=== PATIENT | male | born 1985 | race American Indian/Alaskan Native ===

== ENCOUNTER 2018-03-13 09:23 | Emergency (ER) | payer MEDICAID ==
[~2018-03-13] VITALS: Ht 172.7 cm; Wt 73.4 kg
[~2018-03-13 09:23] MED LIST: NO HOME MEDS
[2018-03-13] MEDS ORDERED: OLANZapine 5mg rapidly disint. tablet PO ONE (09:50)
[2018-03-13 10:40] LABS: URINE AMPHETAMINE SCREEN NEGATIVE (Neg); URINE BARBITUATE SCREEN NEGATIVE (Neg); URINE BENZODIAZEPINES SCREEN NEGATIVE (Neg); URINE CANNABINOID SCREEN NEGATIVE (Neg); URINE COCAINE SCREEN NEGATIVE (Neg); URINE METHADONE SCREEN NEGATIVE (Neg); URINE OPIATE SCREEN NEGATIVE (Neg); URINE PHENCYCLIDINE SCREEN NEGATIVE (Neg)
[2018-03-13 10:47] LABS: BASOPHILS # (AUTO) 0.1 X10'3 (0-0.2); BASOPHILS % (AUTO) 0.9 % (0-1); EOSINOPHILS # (AUTO) 0.1 X10'3 (0-0.9); HEMATOCRIT 43.3 % (42.0-52.0); HEMOGLOBIN 14.4 g/dl (14.0-17.9); LYMPHOCYTES # (AUTO) 1.2 X10'3 (1.1-4.8); LYMPHOCYTES % (AUTO) 17.5 % (21-51); MEAN CORPUSCULAR HEMOGLOBIN 29.9 PG (27.0-31.0); MEAN CORPUSCULAR HGB CONC 33.4 % (33.0-36.5); MEAN CORPUSCULAR VOLUME 89.6 FL (78-98); MEAN PLATELET VOLUME 8.2 FL (7.4-10.4); MONOCYTES # (AUTO) 0.8 X10'3 (0-0.9); MONOCYTES % (AUTO) 11.3 % (2-12); NEUTROPHILS # (AUTO) 4.6 X10'3 (1.8-7.7); NEUTROPHILS % (AUTO) 68.3 % (42-75); PLATELET COUNT 247 X10'3 (140-440); RED BLOOD COUNT 4.83 X10'6 (4.70-6.10); WHITE BLOOD COUNT 6.8 X10'3 (4.5-11.0)
[2018-03-13 11:01] LABS: ALANINE AMINOTRANSFERASE 35 U/L (12-78); ALBUMIN/GLOBULIN RATIO 1.2 (1.1-1.5); ALKALINE PHOSPHATASE 83 IU/L (46-116); ANION GAP 9 (8-16); ASPARTATE AMINO TRANSFERASE 27 U/L (10-37); BILIRUBIN,TOTAL 0.6 MG/DL (0.1-1.0); BLOOD UREA NITROGEN 16 MG/DL (7-18); BUN/CREATININE RATIO 15.5 (5.4-32.0); CALCIUM 8.8 MG/DL (8.5-10.1); CHLORIDE 102 MMOL/L (99-107); CREATININE 1.03 MG/DL (0.60-1.10); GLUCOSE 95 MG/DL (70-104); POTASSIUM 3.7 MMOL/L (3.5-5.1); SODIUM 140 MMOL/L (135-145); TOTAL CARBON DIOXIDE 29.3 MMOL/L (24-32); TOTAL PROTEIN 7.4 G/DL (6.4-8.2); eGFR 85 ML/MIN
[2018-03-13 11:08] LABS: ETHANOL < 0.010 GM/DL (0.0-0.010)
[2018-03-13] MEDS ORDERED: QUET50TA PO (11:11)
[2018-03-13] MEDS ORDERED: PALI234D IM (11:11)
[2018-03-13] MEDS ORDERED: quetiapine 100mg tablet PO ONE (11:20)
[2018-03-13] MEDS ORDERED: LORazepam 1 MG tablet PO PRN (17:05)
[2018-03-13] MEDS ORDERED: QUEtiapine 25mg tablet PO SCH (21:00)
[2018-03-15 06:03] VITALS: BP 115/69
[2018-03-15] MEDS ORDERED: LORA1TAB PO (13:01)
[2018-03-22] MEDS ORDERED: paliperidone palmitate inj 234 MG/1.5 ML SYRINGE IM SCH (08:00)
== END 2018-03-15 09:23 | disposition home or self-care (01) ==
LOC: ER 09:23
DX: F29 Unspecified psychosis not due to a substance or known physiological condition (principal); R45.851 Suicidal ideations; F32.9 Major depressive disorder, single episode, unspecified; F20.9 Schizophrenia, unspecified; F41.9 Anxiety disorder, unspecified; F15.90 Other stimulant use, unspecified, uncomplicated; F11.90 Opioid use, unspecified, uncomplicated; F17.210 Nicotine dependence, cigarettes, uncomplicated; Z88.0 Allergy status to penicillin; Z88.1 Allergy status to other antibiotic agents; Z88.6 Allergy status to analgesic agent; Z56.0 Unemployment, unspecified
CPT/HCPCS: 36415; 80053; 80305; 80320; 85025; 99285

== ENCOUNTER 2018-08-30 15:22 | Emergency (ER) | payer MEDICAID, OTHER ==
[~2018-08-30] VITALS: Ht 167.6 cm; Wt 63.6 kg
[~2018-08-30 15:22] MED LIST changes: +ATI1T PO; -NO HOME MEDS; +VENL75CA61 PO
[2018-08-30 16:07] LABS: CLARITY,URINE CLOUDY (Clear); GLUCOSE, URINE NEGATIVE (Neg); KETONES,URINE TRACE mg/dl (Neg); LEUKOCYTE ESTERASE ,URINE NEGATIVE (Neg); NITRITES, URINE NEGATIVE (Neg); OCCULT BLOOD,URINE NEGATIVE (Neg); PH,URINE 5.5 (4.8-8.0); PROTEIN,URINE TRACE mg/dl (Neg); UROBILINOGEN,URINE 0.2 E.U/dL (0.2-1.0)
[2018-08-30 16:12] LABS: COLOR,URINE DARK YELLOW (Yellow); UA COLLECTION TYPE CLN CATCH MIDSTREAM
[2018-08-30 16:14] LABS: ALANINE AMINOTRANSFERASE 20 U/L (12-78); ALBUMIN 4.3 G/DL (3.4-5.0); ALBUMIN/GLOBULIN RATIO 1.3 (1.1-1.5); ALKALINE PHOSPHATASE 71 IU/L (46-116); ANION GAP 9 (8-16); ASPARTATE AMINO TRANSFERASE 17 U/L (10-37); BILIRUBIN,TOTAL 0.4 MG/DL (0.1-1.0); BLOOD UREA NITROGEN 13 MG/DL (7-18); BUN/CREATININE RATIO 14.1 (5.4-32.0); CHLORIDE 106 MMOL/L (99-107); CREATININE 0.92 MG/DL (0.60-1.10); GLUCOSE 78 MG/DL (70-104); POTASSIUM 3.8 MMOL/L (3.5-5.1); SODIUM 143 MMOL/L (135-145); TOTAL CARBON DIOXIDE 28.4 MMOL/L (24-32); TOTAL PROTEIN 7.5 G/DL (6.4-8.2); eGFR > 90 ML/MIN
[2018-08-30 16:21] LABS: BASOPHILS % (AUTO) 0.6 % (0-1); EOSINOPHILS # (AUTO) 0.1 X10'3 (0-0.9); HEMATOCRIT 43.6 % (42.0-52.0); HEMOGLOBIN 14.9 g/dl (14.0-17.9); LYMPHOCYTES # (AUTO) 2.1 X10'3 (1.1-4.8); LYMPHOCYTES % (AUTO) 36.3 % (21-51); MEAN CORPUSCULAR HEMOGLOBIN 30.9 PG (27.0-31.0); MEAN CORPUSCULAR HGB CONC 34.2 g/dL (33.0-36.5); MEAN CORPUSCULAR VOLUME 90.2 FL (78-98); MEAN PLATELET VOLUME 8.8 FL (7.4-10.4); MONOCYTES # (AUTO) 0.4 X10'3 (0-0.9); MONOCYTES % (AUTO) 6.6 % (2-12); NEUTROPHILS # (AUTO) 3.3 X10'3 (1.8-7.7); NEUTROPHILS % (AUTO) 55.5 % (42-75); PLATELET COUNT 229 X10'3 (140-440); RED BLOOD COUNT 4.84 X10'6 (4.70-6.10); RED CELL DISTRIBUTION WIDTH 12.4 % (11.5-14.5); WHITE BLOOD COUNT 5.9 X10'3 (4.5-11.0)
[2018-08-30 16:23] LABS: ETHANOL < 0.010 GM/DL (0.0-0.010)
[2018-08-30 16:39] LABS: URINE AMPHETAMINE SCREEN NEGATIVE (Neg); URINE BARBITUATE SCREEN NEGATIVE (Neg); URINE BENZODIAZEPINES SCREEN NEGATIVE (Neg); URINE CANNABINOID SCREEN NEGATIVE (Neg); URINE COCAINE SCREEN NEGATIVE (Neg); URINE METHADONE SCREEN NEGATIVE (Neg); URINE OPIATE SCREEN NEGATIVE (Neg); URINE PHENCYCLIDINE SCREEN NEGATIVE (Neg)
[2018-08-30 16:50] LABS: MUCUS STRANDS MANY /LPF (Neg)
[2018-08-30 16:51] LABS: AMORPHOUS URATES 4+; RBC,URINE NONE SEEN /HPF (0-2); SQUAMOUS EPITHELIAL CELL,UR FEW /LPF (FEW); WBC,URINE 0-4 /HPF (0-4)
[2018-08-30 16:52] LABS: BACTERIA,URINE NONE SEEN /HPF (Neg)
--- NOTE | 2018-08-30 19:11 | NUR ---
Patient is awake and ambulating around room. He is calm and cooperative. He seems to respond to internal stimuli prior to answering questions.
--- NOTE | 2018-08-30 21:00 | NUR ---
The patient was moved to bed 20 in the ER overflow. He was cooperative with nursing requests. He appears anxious and is restless. He stated that his sleep at home has been "pretty good" and when asked why he was here he stated that he did not know. He stated that he is a clinic at [facility] and "Nereyda" is prescribing his psychiatric medications but the patient has not been taking them. He lives with his mother in [place] and is unemployed. He has no source of income but denies any kind of financial or legal problems at this time. He did state his anxiety has been high. He denies psychotic symptoms and he does appear slightly distracted. He denies thoughts to harm himself or others. When asked if he felt depressed he stated, "Mirna. Life is hard at times" but was unable to relate how it was hard. He was alert, oriented, polite, minimal and guarded. His grooming is adequate. He was offered zyprexa but he refused to take it. He is only interested in taking ativan.
[2018-08-30] MEDS: OLANZapine 2.5MG tablet PO ONE ×2 (21:11→21:12)
--- NOTE | 2018-08-30 23:29 | NUR ---
The patient appears to be sleeping
--- NOTE | 2018-08-31 02:32 | NUR ---
RELIEVING PRIMARY RN FOR BREAK. PT ASLEEP, LYING ON HIS LEFT SIDE WITH BLANIKETS COVERING TO HIS SHOULDERS. RR 14 AND UNLABORED. SITTER AND RN WITHIN VIEW OF PT AAT.
--- NOTE | 2018-08-31 04:42 | NUR ---
The patient appears to be asleep at this time
--- NOTE | 2018-08-31 05:38 | NUR ---
Report to IGOR Mueller at [facility] who are considering the patient for their program.
--- NOTE | 2018-08-31 06:55 | NUR ---
Recieved pt in bed sleeping with normal respirations and in no distress. Awoke and ambulated to bathroom and returned to bed.
--- NOTE | 2018-08-31 10:36 | NUR ---
Pt calm and cooperative. Did not eat breakfast. Offered a pre packaged sandwich and still refused. Encouraged to drink juice and water. Awake and pacing near bed. Gave report to Armida River.
[2018-08-31] MEDS ORDERED: LORazepam 1 MG tablet PO PRN (13:10)
--- NOTE | 2018-08-31 13:45 | NUR ---
med clearance and ekg sent to resp pad
--- NOTE | 2018-08-31 13:58 | NUR ---
PT'S GRANDMOTHER IS AT BEDSIDE NOW.
[2018-08-31 15:13] VITALS: BP 105/58
== END 2018-08-31 15:19 ==
LOC: ER 15:22
DX: F29 Unspecified psychosis not due to a substance or known physiological condition (principal); F41.9 Anxiety disorder, unspecified; F20.9 Schizophrenia, unspecified; F17.200 Nicotine dependence, unspecified, uncomplicated; F15.90 Other stimulant use, unspecified, uncomplicated; F11.90 Opioid use, unspecified, uncomplicated; Z91.14 Patient's other noncompliance with medication regimen; Z56.0 Unemployment, unspecified; Z88.0 Allergy status to penicillin; Z88.1 Allergy status to other antibiotic agents; Z88.5 Allergy status to narcotic agent; Z88.8 Allergy status to other drugs, medicaments and biological substances; Z79.899 Other long term (current) drug therapy
CPT/HCPCS: 36415; 80053; 80305; 80320; 81001; 84443; 85025; 93005; 99285

== ENCOUNTER 2019-02-23 03:12 | Emergency (ER) | payer MEDICAID ==
[~2019-02-23] VITALS: Ht 172.7 cm; Wt 80.0 kg
[2019-02-23] MEDS ORDERED: magnesium 2GM in 50ml NS 50 ML IV ONE (03:30)
[2019-02-23] MEDS ORDERED: normal saline 1000ML IV soln IVB ONE ×4 (03:30→07:15)
[2019-02-23] MEDS ORDERED: LORazepam 2 mg/ml vial IV ONE ×3 (03:30→06:20)
[2019-02-23] MEDS ORDERED: diltiazem 5mg/ml 5ml inj. IV ONE ×2 (03:35→03:55)
[2019-02-23] MEDS ORDERED: acetaminophen 325mg tablet PO ONE (03:40)
[2019-02-23] MEDS ORDERED: OLAN20TA3 PO (03:43)
[2019-02-23] MEDS ORDERED: LORA2TAB96 PO (03:44)
[2019-02-23] MEDS ORDERED: SERT-153 PO (03:44)
[2019-02-23 03:45] LABS: BASOPHILS % (AUTO) 0.3 % (0-1); EOSINOPHILS % (AUTO) 0 % (0-6); HEMATOCRIT 48.1 % (42.0-52.0); HEMOGLOBIN 16.2 g/dl (14.0-17.9); LYMPHOCYTES # (AUTO) 1.1 X10'3 (1.1-4.8); LYMPHOCYTES % (AUTO) 6.6 % (21-51); MEAN CORPUSCULAR HEMOGLOBIN 30.2 PG (27.0-31.0); MEAN CORPUSCULAR HGB CONC 33.6 g/dL (33.0-36.5); MEAN CORPUSCULAR VOLUME 89.8 FL (78-98); MEAN PLATELET VOLUME 9.2 FL (7.4-10.4); MONOCYTES # (AUTO) 0.6 X10'3 (0-0.9); MONOCYTES % (AUTO) 3.7 % (2-12); NEUTROPHILS # (AUTO) 14.9 X10'3 (1.8-7.7); NEUTROPHILS % (AUTO) 89.4 % (42-75); PLATELET COUNT 269 X10'3 (140-440); RED BLOOD COUNT 5.36 X10'6 (4.70-6.10); RED CELL DISTRIBUTION WIDTH 13.4 % (11.5-14.5); WHITE BLOOD COUNT 16.7 X10'3 (4.5-11.0)
[2019-02-23 04:08] LABS: ALANINE AMINOTRANSFERASE 35 U/L (12-78); ALBUMIN 4.9 G/DL (3.4-5.0); ALBUMIN/GLOBULIN RATIO 1.2 (1.1-1.5); ALKALINE PHOSPHATASE 72 IU/L (46-116); ANION GAP 17 (8-16); ASPARTATE AMINO TRANSFERASE 23 U/L (10-37); BILIRUBIN,TOTAL 0.3 MG/DL (0.1-1.0); BLOOD UREA NITROGEN 9 MG/DL (7-18); BUN/CREATININE RATIO 4.9 (5.4-32.0); CALCIUM 9.1 MG/DL (8.5-10.1); CHLORIDE 105 MMOL/L (99-107); CREATININE 1.83 MG/DL (0.60-1.10); GLUCOSE 187 MG/DL (70-104); POTASSIUM 3.9 MMOL/L (3.5-5.1); SODIUM 143 MMOL/L (135-145); TOTAL CARBON DIOXIDE 20.8 MMOL/L (24-32); eGFR 43 ML/MIN
[2019-02-23 04:10] LABS: CREATINE KINASE 159 U/L (39-308)
[2019-02-23] MEDS ORDERED: diphenhydrAMINE 50 mg/ml inj IV ONE (04:10)
[2019-02-23 04:14] LABS: ETHANOL < 0.010 GM/DL (0.0-0.010)
[2019-02-23] MEDS ORDERED: adenosine 3mg/ml 2ml vial IV ONE ×3 (04:25→06:00)
[2019-02-23] MEDS ORDERED: etomidate 2mg/ml inj. IV ONE ×2 (04:45→05:05)
--- NOTE | 2019-02-23 05:09 | NUR ---
SYNCRONIZED CARDIOVERSION WAS PERFORMED X 2 ATTEMPTS - PT WAS SVT AND SHOCKED AT 100 JOULES UNSUCCESSFULLY. SECOND ATTEMPT AT 200 JOULES CONVERTED PT TO SINUS TACHYCARDIA. PT TOLERATED PROCEDURE WELL.
[2019-02-23] MEDS ORDERED: haloperidol lactate 5mg/ml inj IM ONE (05:10)
[2019-02-23 05:23] LABS: CLARITY,URINE CLEAR (Clear); COLOR,URINE YELLOW (Yellow); GLUCOSE, URINE NEGATIVE (Neg); KETONES,URINE NEGATIVE (Neg); LEUKOCYTE ESTERASE ,URINE NEGATIVE (Neg); NITRITES, URINE NEGATIVE (Neg); OCCULT BLOOD,URINE NEGATIVE (Neg); PH,URINE 6.5 (4.8-8.0); PROTEIN,URINE NEGATIVE (Neg); UROBILINOGEN,URINE 0.2 E.U/dL (0.2-1.0)
[2019-02-23 05:25] LABS: UA COLLECTION TYPE FOLEY CATH
[2019-02-23] MEDS ORDERED: diazepam inj 5 MG/ML inj. IV ONE (05:25)
[2019-02-23 05:26] LABS: URINE AMPHETAMINE SCREEN POSITIVE (Neg); URINE BARBITUATE SCREEN NEGATIVE (Neg); URINE BENZODIAZEPINES SCREEN NEGATIVE (Neg); URINE CANNABINOID SCREEN NEGATIVE (Neg); URINE COCAINE SCREEN NEGATIVE (Neg); URINE METHADONE SCREEN NEGATIVE (Neg); URINE OPIATE SCREEN NEGATIVE (Neg); URINE PHENCYCLIDINE SCREEN NEGATIVE (Neg)
--- NOTE | 2019-02-23 05:51 | NUR ---
PATIENT STILL "PRAYING" but much more relaxed in states that he feels better. Able to answer questions appropriately
[2019-02-23] MEDS ORDERED: etomidate 2mg/ml inj. ONE (06:00)
--- NOTE | 2019-02-23 06:30 | NUR ---
Pt. presents with compulsiveness and stated to the nurse that he was trying to remove his kowalski cath and needed help. He was educated the potential injury this can cause, but he is unable to follow through with instructions. Increased monitoring will be initiated.
--- NOTE | 2019-02-23 07:42 | NUR ---
Pt. laying in bed, resting.
[2019-02-23 09:43] VITALS: BP 112/59
--- NOTE | 2019-02-23 09:51 | NUR ---
Pt. continues to ask for kowalski cath to be removed. Education provided regarding need for I+O d/t large volume of fluids given.
--- NOTE | 2019-02-23 10:13 | NUR ---
Pt. found with [place] pulled out. He states that he did not do it on purpose and denies messing with it.
--- NOTE | 2019-02-23 10:52 | NUR ---
PACKET HAS BEEN FAXED TO [facility]
--- NOTE | 2019-02-23 11:14 | NUR ---
IVs and kowalski cath DCd per .
--- NOTE | 2019-02-23 11:15 | NUR ---
Pt transferred to [facility]; packet sent to [place] office. Personal property inventoried and signed by pt and taken to ambulance bay by SEVERINO Campbell. Pt is now pacing the floors with a blanket around him. He reports taking Ativan to treat anxiety.
--- NOTE | 2019-02-23 11:17 | NUR ---
Report given to Ekaterina in overflow. Pt. escorted by WORK STATION SUPPORT SPECIALIST to new bed assignment.
--- NOTE | 2019-02-23 13:00 | NUR ---
Pt pacing back and forth waiting for mental health to evaluate.
[2019-02-23] MEDS ORDERED: LORA2TAB96 (14:45)
[2019-02-23] MEDS ORDERED: SERT50TA10 (14:45)
--- NOTE | 2019-02-23 14:58 | NUR ---
Pt seen by [facility]; continues to pace
--- NOTE | 2019-02-23 15:44 | NUR ---
Pt has been okay'd to discharge waiting for his ride.
--- NOTE | 2019-02-23 16:19 | NUR ---
Mother here to sweet pickle maker pt and take to their home where he lives.
== END 2019-02-23 16:20 | disposition home or self-care (01) ==
LOC: ER 03:13
DX: I47.1 Supraventricular tachycardia (principal); E86.0 Dehydration; F15.29 Other stimulant dependence with unspecified stimulant-induced disorder; E87.2 Acidosis; F41.9 Anxiety disorder, unspecified; F32.9 Major depressive disorder, single episode, unspecified; F20.9 Schizophrenia, unspecified; F11.90 Opioid use, unspecified, uncomplicated; F10.99 Alcohol use, unspecified with unspecified alcohol-induced disorder; Z56.0 Unemployment, unspecified; Z88.0 Allergy status to penicillin; Z88.1 Allergy status to other antibiotic agents; Z88.5 Allergy status to narcotic agent; Z88.8 Allergy status to other drugs, medicaments and biological substances; Z79.899 Other long term (current) drug therapy; Y90.9 Presence of alcohol in blood, level not specified
CPT/HCPCS: 36415; 71045; 80053; 80305; 80320; 81003; 82550; 83605; 84145; 84443; 85025; 87040; 92960; 93005; 96361; 96365; 96372; 96375; 96376; 99152; 99285; J0153; J1200; J1630; J2060; J3360; J3475; J7030; 96374; J3490

== ENCOUNTER 2019-02-25 02:11 | Emergency (ER) | payer MEDICAID ==
[~2019-02-25] VITALS: Ht 172.7 cm; Wt 68.2 kg
[~2019-02-25 02:11] MED LIST changes: -ATI1T PO; +LORA2TAB96; +LORA2TAB96 PO; +OLAN20TA3 PO; +SERT-153 PO; +SERT50TA10; -VENL75CA61 PO
[2019-02-25] MEDS ORDERED: magnesium oxide 400mg tablet PO ONE (03:05)
[2019-02-25] MEDS ORDERED: OLANZapine 5mg rapidly disint. tablet PO ONE ×2 (03:05→03:25)
[2019-02-25] MEDS ORDERED: LORazepam 1 MG tablet PO ONE ×2 (03:05→11:15)
[2019-02-25] MEDS ORDERED: normal saline 1000ML IV soln IVB ONE ×2 (03:25→06:10)
[2019-02-25 04:07] LABS: BASOPHILS % (AUTO) 0.4 % (0-1); EOSINOPHILS % (AUTO) 0.1 % (0-6); HEMATOCRIT 49.7 % (42.0-52.0); HEMOGLOBIN 17.1 g/dl (14.0-17.9); LYMPHOCYTES # (AUTO) 1.1 X10'3 (1.1-4.8); MEAN CORPUSCULAR HEMOGLOBIN 30.5 PG (27.0-31.0); MEAN CORPUSCULAR HGB CONC 34.5 g/dL (33.0-36.5); MEAN CORPUSCULAR VOLUME 88.6 FL (78-98); MEAN PLATELET VOLUME 9.3 FL (7.4-10.4); MONOCYTES # (AUTO) 0.8 X10'3 (0-0.9); MONOCYTES % (AUTO) 7.5 % (2-12); NEUTROPHILS # (AUTO) 8.7 X10'3 (1.8-7.7); PLATELET COUNT 263 X10'3 (140-440); RED CELL DISTRIBUTION WIDTH 14.1 % (11.5-14.5); WHITE BLOOD COUNT 10.6 X10'3 (4.5-11.0)
[2019-02-25 04:32] LABS: ALANINE AMINOTRANSFERASE 63 U/L (12-78); ALBUMIN 4.8 G/DL (3.4-5.0); ALBUMIN/GLOBULIN RATIO 1.1 (1.1-1.5); ALKALINE PHOSPHATASE 75 IU/L (46-116); ANION GAP 12 (8-16); ASPARTATE AMINO TRANSFERASE 59 U/L (10-37); BILIRUBIN,TOTAL 0.4 MG/DL (0.1-1.0); BLOOD UREA NITROGEN 10 MG/DL (7-18); BUN/CREATININE RATIO 8.6 (5.4-32.0); CALCIUM 9.8 MG/DL (8.5-10.1); CHLORIDE 104 MMOL/L (99-107); CREATININE 1.16 MG/DL (0.60-1.10); GLUCOSE 108 MG/DL (70-104); POTASSIUM 3.9 MMOL/L (3.5-5.1); SODIUM 142 MMOL/L (135-145); TOTAL CARBON DIOXIDE 26.2 MMOL/L (24-32); eGFR 73 ML/MIN
[2019-02-25 04:35] LABS: ETHANOL < 0.010 GM/DL (0.0-0.010)
[2019-02-25 04:36] LABS: CREATINE KINASE 1004 U/L (39-308)
[2019-02-25] MEDS ORDERED: quetiapine 100mg tablet PO ONE (06:00)
[2019-02-25 06:03] LABS: URINE AMPHETAMINE SCREEN POSITIVE (Neg); URINE BARBITUATE SCREEN NEGATIVE (Neg); URINE BENZODIAZEPINES SCREEN NEGATIVE (Neg); URINE CANNABINOID SCREEN POSITIVE (Neg); URINE COCAINE SCREEN NEGATIVE (Neg); URINE METHADONE SCREEN NEGATIVE (Neg); URINE OPIATE SCREEN NEGATIVE (Neg); URINE PHENCYCLIDINE SCREEN NEGATIVE (Neg)
--- NOTE | 2019-02-25 07:20 | NUR ---
PT RECEIVED 3RD L NS AND SERIQUEL.
--- NOTE | 2019-02-25 08:42 | NUR ---
CALL FROM [facility] OFFICE THEY RECEIVED THE PACKET BUT NOT THE 1798 PRINTED AND FAXED AT THIS TIME
--- NOTE | 2019-02-25 08:49 | NUR ---
PT AWAKE AND PACING AROUND IN ROOM. PT VSS NO NEEDS AT THIS TIME. PT STATES IT HELPS TO WALK AROUND
--- NOTE | 2019-02-25 09:30 | NUR ---
PATIENT SITTING IN BED READING HIS BIBLE. DOES NOT "FEEL HUNGRY" NO BREAKFAST EATEN. PATIENT STATED "I RELAPSED ON METH". PATIENT STATES THAT HE HAS SI AND WILL TAKE AN OVERDOSE OF HIS PILLS. PATIENT REPORTS THAT HE SEES DR. BRANDO NAIR"AT [facility] AND HE "LIKES TO TAKE HIS ZOLOFT", BUT NOT HIS SEROQUEL. PATIENT REORTS TAKING HIS ZOLOFT REGULARLY. HE IS ASKING FOR MORE MEDICATION TO :"CALM MY ANXIETY" HE LIVES WITH HIS FAMILY IN [place] AND STATES THAT HIS MOTHER IS DISAPPOINTED IN HIM FOR USING METH. PAT[facility] DUE TO MY "SCHIZOPHRENIA AND MAJOR DEPRESSIVE DISORDER" AND IT NOT EMPLOYED. PATIENT STATES THAT "METH MAKES ME THINK BETTER AND MY BRAIN IS MORE CALM" PT AXOX4, SANIYA.
--- NOTE | 2019-02-25 09:33 | NUR ---
PATIENT DENIES HARM TO OTHERS. AND APPEARS WELL GROOMED
--- NOTE | 2019-02-25 11:00 | NUR ---
patient up and pacing back and forth in his room.
--- NOTE | 2019-02-25 11:04 | NUR ---
SPOKE TO DR RANGEL REGARDING PATIENT'S ANXIETY AND TACHYCARDIA TO 133
--- NOTE | 2019-02-25 12:30 | NUR ---
patient reading his bible in his room
--- NOTE | 2019-02-25 13:35 | NUR ---
SPOKE TO TRAN MOTHER : OK TO UPDATE HER PER PATIENT
--- NOTE | 2019-02-25 14:35 | NUR ---
PATIENT PACING IN THE ROOM, TALKED WITH HIM AND HE SAT DOWN AND CALMED DOWN
--- NOTE | 2019-02-25 15:41 | NUR ---
PATIENT SITTING AT BEDSIDE READING HIS BIBLE. PATIENT GOES TO [facility]
--- NOTE | 2019-02-25 16:31 | NUR ---
PATIENT SITTING UP IN BED WITH HIS BIBLE ON HIS LAP. EYES CLOSED RR EVEN AND UNLABORED.
--- NOTE | 2019-02-25 17:55 | NUR ---
PATIENT CONTINUES TO READ HIS BIBLE WHILE SITTING IN BED
--- NOTE | 2019-02-25 18:30 | NUR ---
PATIENT REFUSED TO EAT DINNER "IPREFER VEGETABLE AND FRUITS" PATIENT HAS BEEN DRINKING COFFEE DECAF WITH WATER IN BETWEEN
--- NOTE | 2019-02-25 19:34 | NUR ---
CALLED REPORT TO ИВАН COSTA IN ER OVERFLOW
--- NOTE | 2019-02-25 19:42 | NUR ---
Recieved report from IGOR Ward. Patient will be transfered to this writers care shortly.
--- NOTE | 2019-02-25 19:58 | NUR ---
CALLED ИВАН TO LET HIM KNOW THAT PATIENT IS GOING TO BE DISCHARGED
--- NOTE | 2019-02-25 19:58 | NUR ---
Per Sylvia COSTA, this patient is going to be discharged. Moving patient to ER overflow is now terminated. Sylvia COSTA will do discharge paperwork.
--- NOTE | 2019-02-25 20:46 | NUR ---
DISCUSSED DISCHARGE PLAN WITH DR VALLECILLO WHO DEFERED TO DR SMYTH. THE PATIENT WAS PRESCRIBED 2MG ATIVAN TID BY ISACC SHAH ON 02/09/19 14 DAY SUPPLY WHICH WOULD BE DONE ON 02/23/19. PATIENT WOULD LIKE A PRESCRIPTION FOR ATIVAN. PATIENT STATES THAT HE SEES HIS PYSCHIATRIST IN 2 WEEKS. [facility] MENT[facility] HE[facility] WORKER CLEARED PATIENT FOR DISCHARGE AND DR VALLECILLO AGREED. DR SMYTH IS CONCERNED IF PATIENT IS ABLE TO GO HOME WITH HIS MOTHER. CALLING MOTHER [phone], LEFT MESSAGE
--- NOTE | 2019-02-25 21:12 | NUR ---
SPOKE WITH MOTHER; SHE CALLED BACK PATIENT HAS AN APPOINTMENT WITH HIS PYSCHOTHERAPIST CARO THIS WEDNESDAY AND AN APPOINTMENT WITH HIS PYSCHIATRIST IN 2 WEEKS. MOTHER LOCKS UP ALL OF PATIENT'S MEDICATIONS AND GIVES THEM TO HER SON.
[2019-02-25] MEDS ORDERED: LORA-269 PO (21:39)
--- NOTE | 2019-02-25 22:00 | NUR ---
PATIENT DRESSED IN HIS OWN CLOTHES AND READY FOR HIS MOTHER TO PICK HIM UP WITH ALLHIS BELONGINGS
--- NOTE | 2019-02-25 22:30 | NUR ---
SHERYL'S MOTHER CALLED AND SHE WILL BE HERE AT 2300; PATIENT UPDATED AND ASKED TO WAIT IN HIS ROOM
--- NOTE | 2019-02-25 23:00 | NUR ---
DISCUSSED DISCHARGE IN DETAIL WITH MOTHER AT BEDSIDE. DISCUSSED PROCESS OF MENTAL HEALTH EVALUATION WITH MOTHER. PATIENT HAS APPOINTMENT WITH PHYSCHOLOGIST IN AM AND PYSCHIATRIST IN TWO WEEKS. PATIENT GIVEN PRESCRIPTION FOR ATIVAN 1 MG EVERY 12 HOURS AND MOTHER AND PATIENT VERBALIZED WHY THE DOSE WAS ORDERED AND WHY THE FREQUENCY LOWERED.PATIENT WILLTAKE DIRECTED. PATIENT VERBALIZED THAT HE WILL STAY AWAY FROM PLACES AND PEOPLE WHERE AND WHO HE OBTAINED METHAMPHETAMINE FROM. PATIENT APPEARS SLIGHLY ANXIOUS AND STATED THAT HE IS READY TO GO HOME. PATIENT AMBULATED OUT OF ER WNL WITH MOTHER AT BEDSIDE.
[2019-02-26 03:27] VITALS: BP 120/79
== END 2019-02-25 23:20 | disposition home or self-care (01) ==
LOC: ER 02:12
DX: F23 Brief psychotic disorder (principal); R45.851 Suicidal ideations; F15.10 Other stimulant abuse, uncomplicated; F41.9 Anxiety disorder, unspecified; F32.9 Major depressive disorder, single episode, unspecified; F11.90 Opioid use, unspecified, uncomplicated; F10.99 Alcohol use, unspecified with unspecified alcohol-induced disorder; Z56.0 Unemployment, unspecified; Z88.1 Allergy status to other antibiotic agents; Z88.0 Allergy status to penicillin; Z88.5 Allergy status to narcotic agent; Z79.899 Other long term (current) drug therapy; Y90.9 Presence of alcohol in blood, level not specified
CPT/HCPCS: 36415; 71045; 80053; 80305; 80320; 82550; 83605; 83874; 83880; 85025; 93005; 99284; J7030

== ENCOUNTER 2019-03-25 13:40 | Emergency (ER) | payer MEDICAID ==
[~2019-03-25] VITALS: Ht 170.2 cm; Wt 81.8 kg
[~2019-03-25 13:40] MED LIST changes: +LORA-269 PO; -LORA2TAB96; -SERT50TA10
--- NOTE | 2019-03-25 14:16 | NUR ---
pt out to ct via wheelchair with toll line inspector
[2019-03-25 14:19] LABS: BASOPHILS # (AUTO) 0.1 X10'3 (0-0.2); BASOPHILS % (AUTO) 0.9 % (0-1); LYMPHOCYTES # (AUTO) 2.6 X10'3 (1.1-4.8); MEAN PLATELET VOLUME 8.2 FL (7.4-10.4); MONOCYTES # (AUTO) 0.7 X10'3 (0-0.9)
[2019-03-25 14:20] LABS: CLARITY,URINE SLIGHTLY CLOUDY (Clear); COLOR,URINE YELLOW (Yellow); GLUCOSE, URINE NEGATIVE (Neg); KETONES,URINE TRACE mg/dl (Neg); LEUKOCYTE ESTERASE ,URINE NEGATIVE (Neg); NITRITES, URINE NEGATIVE (Neg); OCCULT BLOOD,URINE NEGATIVE (Neg); PH,URINE 6.5 (4.8-8.0); PROTEIN,URINE NEGATIVE (Neg); UROBILINOGEN,URINE 0.2 E.U/dL (0.2-1.0)
[2019-03-25 14:21] LABS: EOSINOPHILS # (AUTO) 0.1 X10'3 (0-0.9); EOSINOPHILS % (AUTO) 1.9 % (0-6); HEMATOCRIT 46.3 % (42.0-52.0); HEMOGLOBIN 16.2 g/dl (14.0-17.9); LYMPHOCYTES % (AUTO) 34.4 % (21-51); MEAN CORPUSCULAR HEMOGLOBIN 30.8 PG (27.0-31.0); MEAN CORPUSCULAR HGB CONC 35.1 g/dL (33.0-36.5); MEAN CORPUSCULAR VOLUME 87.8 FL (78-98); MONOCYTES % (AUTO) 9.1 % (2-12); NEUTROPHILS # (AUTO) 4.1 X10'3 (1.8-7.7); NEUTROPHILS % (AUTO) 53.7 % (42-75); PLATELET COUNT 248 X10'3 (140-440); RED BLOOD COUNT 5.27 X10'6 (4.70-6.10); RED CELL DISTRIBUTION WIDTH 14.3 % (11.5-14.5); WHITE BLOOD COUNT 7.6 X10'3 (4.5-11.0)
[2019-03-25 14:22] LABS: UA COLLECTION TYPE CLN CATCH MIDSTREAM
[2019-03-25 14:29] LABS: AMORPHOUS URATES 2+; BACTERIA,URINE NONE SEEN /HPF (Neg); MUCUS STRANDS FEW /LPF (Neg); RBC,URINE NONE SEEN /HPF (0-2); SQUAMOUS EPITHELIAL CELL,UR NONE SEEN /LPF (FEW); WBC,URINE 0-4 /HPF (0-4)
--- NOTE | 2019-03-25 14:34 | NUR ---
PT RETURNS FROM CT
[2019-03-25 14:37] LABS: ALANINE AMINOTRANSFERASE 30 U/L (12-78); ALBUMIN 4.2 G/DL (3.4-5.0); ALBUMIN/GLOBULIN RATIO 1.2 (1.1-1.5); ALKALINE PHOSPHATASE 68 IU/L (46-116); ANION GAP 7 (8-16); ASPARTATE AMINO TRANSFERASE 24 U/L (10-37); BILIRUBIN,TOTAL 0.5 MG/DL (0.1-1.0); BLOOD UREA NITROGEN 12 MG/DL (7-18); BUN/CREATININE RATIO 10.8 (5.4-32.0); CALCIUM 8.9 MG/DL (8.5-10.1); CHLORIDE 104 MMOL/L (99-107); CREATININE 1.11 MG/DL (0.60-1.10); GLUCOSE 74 MG/DL (70-104); LIPASE 113 U/L (73-393); SODIUM 141 MMOL/L (135-145); TOTAL CARBON DIOXIDE 29.7 MMOL/L (24-32); TOTAL PROTEIN 7.8 G/DL (6.4-8.2); eGFR 77 ML/MIN
[2019-03-25 15:08] LABS: URINE AMPHETAMINE SCREEN NEGATIVE (Neg); URINE BARBITUATE SCREEN NEGATIVE (Neg); URINE BENZODIAZEPINES SCREEN NEGATIVE (Neg); URINE CANNABINOID SCREEN POSITIVE (Neg); URINE COCAINE SCREEN NEGATIVE (Neg); URINE METHADONE SCREEN NEGATIVE (Neg); URINE OPIATE SCREEN NEGATIVE (Neg); URINE PHENCYCLIDINE SCREEN NEGATIVE (Neg)
[2019-03-25 15:24] VITALS: BP 121/62
== END 2019-03-25 15:24 | disposition home or self-care (01) ==
LOC: ER 13:40
DX: I88.0 Nonspecific mesenteric lymphadenitis (principal); R10.31 Right lower quadrant pain; R11.10 Vomiting, unspecified; F41.9 Anxiety disorder, unspecified; F32.9 Major depressive disorder, single episode, unspecified; F20.9 Schizophrenia, unspecified; F15.90 Other stimulant use, unspecified, uncomplicated; F11.90 Opioid use, unspecified, uncomplicated; Z56.0 Unemployment, unspecified; F10.99 Alcohol use, unspecified with unspecified alcohol-induced disorder; Y90.9 Presence of alcohol in blood, level not specified; Z88.1 Allergy status to other antibiotic agents; Z88.5 Allergy status to narcotic agent; Z88.8 Allergy status to other drugs, medicaments and biological substances; Z79.899 Other long term (current) drug therapy
CPT/HCPCS: 74176; 80053; 80305; 81001; 83690; 85025; 99284

== ENCOUNTER 2019-03-28 00:50 | Inpatient (IN) | payer MEDICAID ==
[~2019-03-28] VITALS: Ht 170.2 cm; Wt 81.8 kg
[2019-03-28] MEDS ORDERED: normal saline 1000ml 1,000 ML IV ONE ×2 (01:20→02:10)
[2019-03-28] MEDS ORDERED: LORazepam 2 mg/ml vial IV ONE ×2 (01:20→01:45)
[2019-03-28 01:37] LABS: BASOPHILS % (AUTO) 0.2 % (0-1); EOSINOPHILS % (AUTO) 0 % (0-6); HEMATOCRIT 47.6 % (42.0-52.0); HEMOGLOBIN 16.3 g/dl (14.0-17.9); LYMPHOCYTES # (AUTO) 0.9 X10'3 (1.1-4.8); LYMPHOCYTES % (AUTO) 4.6 % (21-51); MEAN CORPUSCULAR HEMOGLOBIN 30.3 PG (27.0-31.0); MEAN CORPUSCULAR HGB CONC 34.3 g/dL (33.0-36.5); MEAN CORPUSCULAR VOLUME 88.4 FL (78-98); MEAN PLATELET VOLUME 8.6 FL (7.4-10.4); MONOCYTES # (AUTO) 0.8 X10'3 (0-0.9); MONOCYTES % (AUTO) 4.1 % (2-12); NEUTROPHILS # (AUTO) 17.5 X10'3 (1.8-7.7); NEUTROPHILS % (AUTO) 91.1 % (42-75); PLATELET COUNT 291 X10'3 (140-440); RED BLOOD COUNT 5.38 X10'6 (4.70-6.10); RED CELL DISTRIBUTION WIDTH 14.4 % (11.5-14.5); WHITE BLOOD COUNT 19.2 X10'3 (4.5-11.0)
[2019-03-28 01:41] LABS: ALANINE AMINOTRANSFERASE 31 U/L (12-78); ALBUMIN/GLOBULIN RATIO 1.3 (1.1-1.5); ALKALINE PHOSPHATASE 69 IU/L (46-116); ANION GAP 14 (8-16); ASPARTATE AMINO TRANSFERASE 27 U/L (10-37); BILIRUBIN,TOTAL 0.7 MG/DL (0.1-1.0); BLOOD UREA NITROGEN 12 MG/DL (7-18); BUN/CREATININE RATIO 7.2 (5.4-32.0); CALCIUM 9.7 MG/DL (8.5-10.1); CHLORIDE 105 MMOL/L (99-107); CREATININE 1.67 MG/DL (0.60-1.10); GLUCOSE 142 MG/DL (70-104); POTASSIUM 4.5 MMOL/L (3.5-5.1); SODIUM 143 MMOL/L (135-145); eGFR 48 ML/MIN
[2019-03-28 01:42] LABS: CREATINE KINASE 236 U/L (39-308)
[2019-03-28] MEDS ORDERED: OLANZapine **IM** 10 mg inj. IM ONE (01:45)
[2019-03-28 01:47] LABS: ETHANOL < 0.010 GM/DL (0.0-0.010)
[2019-03-28] MEDS ORDERED: haloperidol lactate 5mg/ml inj IM ONE (02:25)
[2019-03-28] MEDS ORDERED: diltiazem 5mg/ml 5ml inj. IV ONE (02:35)
[2019-03-28 03:09] LABS: CLARITY,URINE CLEAR (Clear); COLOR,URINE YELLOW (Yellow); GLUCOSE, URINE NEGATIVE (Neg); KETONES,URINE 40 mg/dl (Neg); LEUKOCYTE ESTERASE ,URINE NEGATIVE (Neg); NITRITES, URINE NEGATIVE (Neg); OCCULT BLOOD,URINE NEGATIVE (Neg); PROTEIN,URINE TRACE mg/dl (Neg); UROBILINOGEN,URINE 0.2 E.U/dL (0.2-1.0)
[2019-03-28 03:10] LABS: UA COLLECTION TYPE STRAIGHT CATH
[2019-03-28] MEDS ORDERED: adenosine 3mg/ml 2ml vial IV ONE (03:10)
[2019-03-28 03:16] LABS: RBC,URINE NONE SEEN /HPF (0-2); WBC,URINE 0-4 /HPF (0-4)
[2019-03-28 03:17] LABS: BACTERIA,URINE NONE SEEN /HPF (Neg); MUCUS STRANDS FEW /LPF (Neg); SQUAMOUS EPITHELIAL CELL,UR FEW /LPF (FEW)
[2019-03-28 03:19] LABS: URINE AMPHETAMINE SCREEN POSITIVE (Neg); URINE BARBITUATE SCREEN NEGATIVE (Neg); URINE BENZODIAZEPINES SCREEN NEGATIVE (Neg); URINE CANNABINOID SCREEN POSITIVE (Neg); URINE COCAINE SCREEN NEGATIVE (Neg); URINE METHADONE SCREEN NEGATIVE (Neg); URINE OPIATE SCREEN NEGATIVE (Neg); URINE PHENCYCLIDINE SCREEN NEGATIVE (Neg)
[2019-03-28] MEDS ORDERED: enoxaparin 100mg/ml syringe SUBCUT ONE (06:20)
[2019-03-28] MEDS ORDERED: diltiazem-D5W 125mg/125ml 125 ML IV SCH (06:20)
[2019-03-28] MEDS ORDERED: diltiazem-NS 100mg/100ml 100 ML IV SCH ×2 (06:25→07:20)
--- NOTE | 2019-03-28 07:04 | NUR ---
WAITING HOSPITALIST FOR ADMISSION
[2019-03-28] MEDS ORDERED: magnesium Cl slow-release 64mg tablet PO PRN (07:15)
[2019-03-28] MEDS ORDERED: potassium Cl 20 mEq SR tablet PO PRN ×2 (07:15)
[2019-03-28] MEDS ORDERED: acetaminophen 325mg tablet PO PRN (07:15)
[2019-03-28] MEDS ORDERED: magnesium 4gm in 100ml NS 100 ML IV PRN (07:15)
[2019-03-28] MEDS ORDERED: ondansetron/PF 4mg/2ml inj IV PRN (07:15)
[2019-03-28] MEDS ORDERED: potassium CL 10mEq/100ml bag 100 ML IV PRN ×2 (07:15)
[2019-03-28] MEDS ORDERED: magnesium 2GM in 50ml NS 50 ML IV PRN (07:15)
[2019-03-28] MEDS ORDERED: heparin, porcine 5000 units/ml vial SQ SCH (08:00)
[2019-03-28] MEDS ORDERED: K and/or MAG REPLACEMENT MC SCH (08:00)
[2019-03-28 09:30] VITALS: BP 107/53
--- NOTE | 2019-03-28 09:30 | NUR ---
Patient arrived from ED, report was called by Gemini COSTA. Patient oriented to room, VS obtained, 2RN skin check done and placed on bedside monitor. Will continue to monitor.
--- NOTE | 2019-03-28 09:39 | NUR ---
Paged Dr. Hogue for trop of 0.64 PAGER ID: [phone] MESSAGE: Jamar Velázquez. Rm. [phone]. Trop of 0.64. Laura COSTA x [phone]
--- NOTE | 2019-03-28 09:47 | NUR ---
LAB CALLED (WHILE PT BEING TX TO PCU) TO ADVISE O HR TROP 0.64, CALLED PCU AND NOTIFIED IGOR WHITNEY
--- NOTE | 2019-03-28 10:01 | NUR ---
Rm 3014A, Eber. Patient converted from afib in the ED to SR, Sinus Tach in the 100s, is currently on Cardizem at 5. [place] 0561
--- NOTE | 2019-03-28 10:03 | NUR ---
PAGER ID: [phone] MESSAGE: Al RicciEber Pollock. Patient converted from afib in the ED to SR, Sinus Tach in the 100s, is currently on Cardizem at . Laura [phone]
[2019-03-28] MEDS ORDERED: LORazepam 1 MG tablet PO PRN (10:35)
[2019-03-28 11:00] VITALS: BP 110/53
--- NOTE | 2019-03-28 12:52 | NUR ---
Paged Dr. Hogue letting her know that the patient pulled out his IV from cardizem drip to take a shower. PAGER ID: [phone] MESSAGE: Jamar Velázquez. Rm. [phone]. Patient pulled IV out from Cardizem drip to take a shower and disconnected himself from mobile. Thanks. Laura COSTA x [phone]
--- NOTE | 2019-03-28 13:44 | NUR ---
Paged Dr. Hogue regarding patient leaving AMA at 1500 today. PAGER ID: [phone] MESSAGE: Jamar Velázquez. Rm. [phone]. Patient is leaving AMA at 1500 today because that is when his ride will be here. Thanks. Laura COSTA x [phone]
--- NOTE | 2019-03-28 15:05 | NUR ---
Patient left AMA. MD aware. Patient was educated on the risks of leaving AMA. AMA paperwork signed. PIV discontinued and cannula intact. log marker discontinued. Patient walked down to the lobby and was waiting for his private vehicle to pick him up.
[2019-03-29] MEDS ORDERED: SERT25TA PO (20:21)
[2019-03-29] MEDS ORDERED: OLAN2.5T3 PO (20:21)
== END 2019-03-28 15:05 | disposition left against medical advice (07) | DRG 201 ==
LOC: ER 00:51 → ED HOLD 07:15 → PCU 3S 09:30
PROVIDERS: ADMIT Internal Medicine; ATTEND Internal Medicine
DX: I48.91 Unspecified atrial fibrillation (principal); N17.9 Acute kidney failure, unspecified; F20.9 Schizophrenia, unspecified; F15.10 Other stimulant abuse, uncomplicated; F11.90 Opioid use, unspecified, uncomplicated; F29 Unspecified psychosis not due to a substance or known physiological condition; D72.829 Elevated white blood cell count, unspecified; F32.9 Major depressive disorder, single episode, unspecified; F41.9 Anxiety disorder, unspecified; Z53.29 Procedure and treatment not carried out because of patient's decision for other reasons; Z88.0 Allergy status to penicillin; Z88.5 Allergy status to narcotic agent; Z79.899 Other long term (current) drug therapy
CPT/HCPCS: 36415; 71045; 80053; 80305; 80320; 81001; 82550; 84484; 85025; 87081; 93005; 93306; 96372; 96374; 99285; G0378; J0153; J1630; J1650; J2060; J3490

== ENCOUNTER 2019-03-29 18:09 | Inpatient (IN) | payer MEDICAID ==
[~2019-03-29] VITALS: Ht 172.7 cm; Wt 83.2 kg
[~2019-03-29 18:09] MED LIST changes: -LORA-269 PO; -OLAN20TA3 PO; -SERT-153 PO
[2019-03-29] MEDS ORDERED: metoprolol tartrate 1mg/ml inj IV ONE (18:35)
[2019-03-29] MEDS ORDERED: LORazepam 2 mg/ml vial IV ONE ×2 (18:35→18:45)
[2019-03-29] MEDS ORDERED: normal saline 1000ML IV soln IVB ONE ×2 (18:35→19:55)
[2019-03-29] MEDS ORDERED: haloperidol lactate 5mg/ml inj IM ONE (18:35)
[2019-03-29 18:49] LABS: BASOPHILS # (AUTO) 0.1 X10'3 (0-0.2); BASOPHILS % (AUTO) 0.5 % (0-1); EOSINOPHILS # (AUTO) 0.1 X10'3 (0-0.9); LYMPHOCYTES # (AUTO) 4.4 X10'3 (1.1-4.8); MEAN PLATELET VOLUME 8.8 FL (7.4-10.4); RED CELL DISTRIBUTION WIDTH 14.3 % (11.5-14.5)
[2019-03-29 18:50] LABS: LYMPHOCYTES % (AUTO) 31.5 % (21-51); MEAN CORPUSCULAR HEMOGLOBIN 30.5 PG (27.0-31.0); MEAN CORPUSCULAR HGB CONC 33.9 g/dL (33.0-36.5); MEAN CORPUSCULAR VOLUME 89.9 FL (78-98); MONOCYTES # (AUTO) 1.6 X10'3 (0-0.9); MONOCYTES % (AUTO) 11.3 % (2-12); NEUTROPHILS # (AUTO) 7.7 X10'3 (1.8-7.7); NEUTROPHILS % (AUTO) 55.7 % (42-75); PLATELET COUNT 294 X10'3 (140-440); RED BLOOD COUNT 5.56 X10'6 (4.70-6.10); WHITE BLOOD COUNT 13.9 X10'3 (4.5-11.0)
[2019-03-29 19:03] LABS: ALBUMIN 4.8 G/DL (3.4-5.0); ALBUMIN/GLOBULIN RATIO 1.2 (1.1-1.5); ALKALINE PHOSPHATASE 66 IU/L (46-116); ANION GAP 27 (8-16); ASPARTATE AMINO TRANSFERASE 51 U/L (10-37); BLOOD UREA NITROGEN 15 MG/DL (7-18); BUN/CREATININE RATIO 7.6 (5.4-32.0); CALCIUM 9.5 MG/DL (8.5-10.1); CHLORIDE 99 MMOL/L (99-107); CREATININE 1.97 MG/DL (0.60-1.10); GLUCOSE 169 MG/DL (70-104); MAGNESIUM 2.1 MG/DL (1.5-2.4); POTASSIUM 3.3 MMOL/L (3.5-5.1); SODIUM 140 MMOL/L (135-145); TOTAL PROTEIN 8.8 G/DL (6.4-8.2); eGFR 40 ML/MIN
[2019-03-29 19:10] LABS: TOTAL CARBON DIOXIDE 14.4 MMOL/L (24-32)
--- NOTE | 2019-03-29 19:18 | NUR ---
PATIENT SLEEPING AT THIS TIME, 02 SATURATION 90% PLACED ON 2L O2 NC AT THIS TIME. O2 TO 96% AFTER INTERVENTION
[2019-03-29 19:26] LABS: CREATINE KINASE 1250 U/L (39-308)
[2019-03-29] MEDS ORDERED: enoxaparin 100mg/ml syringe SUBCUT ONE (19:55)
[2019-03-29] MEDS ORDERED: aspirin 325mg tablet PO ONE (19:55)
--- NOTE | 2019-03-29 20:06 | NUR ---
CRITICAL LAB: LACTIC ACID 8.6, notified Dr. Hopkins. aware. Pending hospitalist consult for IP admission.
[2019-03-29 20:13] LABS: ALANINE AMINOTRANSFERASE 43 U/L (12-78)
[2019-03-29] MEDS ORDERED: OLAN2.5T3 PO (20:21)
[2019-03-29] MEDS ORDERED: SERT25TA PO (20:21)
[2019-03-29] MEDS ORDERED: magnesium hydroxide 30ml (MOM) UD suspension PO PRN (21:30)
[2019-03-29] MEDS ORDERED: acetaminophen 325mg tablet PO PRN (21:30)
[2019-03-29] MEDS ORDERED: ondansetron/PF 4mg/2ml inj IV PRN (21:30)
[2019-03-29] MEDS ORDERED: mag hydrox/Alum hydrox/simeth 30ml oral suspension PO PRN (21:30)
[2019-03-29] MEDS ORDERED: potassium Cl 20 mEq SR tablet PO PRN ×2 (21:45)
[2019-03-29] MEDS ORDERED: potassium CL 10mEq/100ml bag 100 ML IV PRN (21:45)
--- NOTE | 2019-03-29 21:58 | NUR ---
Patient in room ED9. I have received report from Ruyb COSTA and had the opportunity to ask questions and awaiting arrival of patient to the PCU unit.
--- NOTE | 2019-03-29 22:00 | NUR ---
Patient arrived to the PCU floor at this time. He is alert and oriented and able to follow commands. He ambulated from the gurney to the bed independently without issues. He does seem lethargic. He responds appropriately but then will fall back to sleep. Vitals are stable. Sitter will be in the room with patient. Will continue to monitor.
[2019-03-29 22:10] VITALS: BP 101/47
[2019-03-29] MEDS: normal saline 1000ml 1,000 ML IV SCH (22:13)
[2019-03-30 01:09] LABS: BASOPHILS # (AUTO) 0.1 X10'3 (0-0.2); BASOPHILS % (AUTO) 0.6 % (0-1); EOSINOPHILS # (AUTO) 0.1 X10'3 (0-0.9); EOSINOPHILS % (AUTO) 0.7 % (0-6); HEMATOCRIT 40.1 % (42.0-52.0); HEMOGLOBIN 13.8 g/dl (14.0-17.9); LYMPHOCYTES # (AUTO) 2.7 X10'3 (1.1-4.8); LYMPHOCYTES % (AUTO) 22.5 % (21-51); MEAN CORPUSCULAR HEMOGLOBIN 30.5 PG (27.0-31.0); MEAN CORPUSCULAR HGB CONC 34.4 g/dL (33.0-36.5); MEAN CORPUSCULAR VOLUME 88.5 FL (78-98); MEAN PLATELET VOLUME 8.4 FL (7.4-10.4); MONOCYTES # (AUTO) 1.1 X10'3 (0-0.9); MONOCYTES % (AUTO) 8.8 % (2-12); NEUTROPHILS # (AUTO) 8.1 X10'3 (1.8-7.7); NEUTROPHILS % (AUTO) 67.4 % (42-75); PLATELET COUNT 209 X10'3 (140-440); RED BLOOD COUNT 4.53 X10'6 (4.70-6.10); RED CELL DISTRIBUTION WIDTH 14.2 % (11.5-14.5)
[2019-03-30 01:24] LABS: ALANINE AMINOTRANSFERASE 29 U/L (12-78); ALBUMIN 3.3 G/DL (3.4-5.0); ALBUMIN/GLOBULIN RATIO 1.2 (1.1-1.5); ALKALINE PHOSPHATASE 47 IU/L (46-116); ANION GAP 12 (8-16); ASPARTATE AMINO TRANSFERASE 48 U/L (10-37); BILIRUBIN,TOTAL 0.8 MG/DL (0.1-1.0); BLOOD UREA NITROGEN 14 MG/DL (7-18); BUN/CREATININE RATIO 13.3 (5.4-32.0); CALCIUM 7.5 MG/DL (8.5-10.1); CHLORIDE 109 MMOL/L (99-107); CREATININE 1.05 MG/DL (0.60-1.10); GLUCOSE 101 MG/DL (70-104); MAGNESIUM 1.8 MG/DL (1.5-2.4); POTASSIUM 3.7 MMOL/L (3.5-5.1); SODIUM 142 MMOL/L (135-145); TOTAL CARBON DIOXIDE 21.2 MMOL/L (24-32); TOTAL PROTEIN 6.1 G/DL (6.4-8.2); eGFR 82 ML/MIN
[2019-03-30 02:00] VITALS: BP 117/79
[2019-03-30 06:00] VITALS: BP 103/55
--- NOTE | 2019-03-30 06:00 | NUR ---
Patient in room PCU 3013. I have received report from Malia COSTA and had the opportunity to ask questions and assume patient care.
--- NOTE | 2019-03-30 06:25 | NUR ---
Problems reprioritized. Patient report given, questions answered & plan of care reviewed with Yajaira COSTA.
--- NOTE | 2019-03-30 07:07 | NUR ---
Neftali JEAN regarding abnormal finding from 12Hr EKG PAGER ID: [phone] MESSAGE: [phone] M. 12Hr EKG came back with prolonged QT at 0.49. 12Hr trop still pending. Casey Ramesh [phone] [facility]
[2019-03-30] MEDS: normal saline 1000ml 1,000 ML IV SCH ×3 (07:26→19:53)
[2019-03-30] MEDS: heparin, porcine 5000 units/ml vial SQ SCH ×2 (09:08→19:53)
[2019-03-30 11:00] VITALS: BP 108/50
[2019-03-30] MEDS: LORazepam 1 MG tablet PO PRN ×3 (11:11→22:12)
--- NOTE | 2019-03-30 11:30 | NUR ---
Patient provided NOD with mother Kelly's number [phone] to call and transfer to his room. On speaking with Kelly she informed me that patient had a black galaxy android phone on him during check-in in the ED. After transferring Kelly to pt. room, I called ED and spoke with Tierra and provided her with details about missing item. Tierra states she will inform EVS and notify me if they find it.
--- NOTE | 2019-03-30 13:57 | NUR ---
Called Kelly to update her regarding her concern about pt.'s lost phone. Unable to reach and left voicemail. Informed that phone is actually with son, just needs to be charged as it is completely . Encouraged to call back for any other concerns.
[2019-03-30 15:00] VITALS: BP 126/53
[2019-03-30] MEDS: LORazepam 1 MG tablet PO SCH (15:49)
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
--- NOTE | 2019-03-30 17:51 | NUR ---
Neftali JEAN to inform about Kelly (pt. mother) wanting to discuss some concerns. Eber Teran M. Mother at bedside with medical hx that she would like to share with you as well as some concerns that she would like to discuss with you. She has given me the OK to provide you her number [phone]. Domitila Bustamante Addendum: 03/30/19 at 1912 by Domitila Borrego RN Incorrect time. Message was sent at 1909. PAGER ID: [phone] MESSAGE: Eber Teran M. Mother at bedside with medical hx that she would like to share with you as well as some concerns that she would like to discuss with you. She has given me the OK to provide you her number [phone]. Domitila Bustamante
[2019-03-30 18:00] VITALS: BP 105/79
--- NOTE | 2019-03-30 19:00 | NUR ---
Patient in room PCU 3013A. I have received report from IGOR Waterman and had the opportunity to ask questions and assume patient care.
--- NOTE | 2019-03-30 19:13 | NUR ---
Problems reprioritized. Patient report given, questions answered & plan of care reviewed with Joni COSTA.
[2019-03-30] MEDS ORDERED: OLANZapine 2.5MG tablet PO SCH (21:00)
[2019-03-30 22:00] VITALS: BP 114/50
[2019-03-31] MEDS: LORazepam 1 MG tablet PO SCH ×3 (00:22→15:58)
[2019-03-31 02:00] VITALS: BP 100/59
[2019-03-31 06:00] VITALS: BP 121/52
[2019-03-31 06:15] LABS: BASOPHILS # (AUTO) 0.1 X10'3 (0-0.2); BASOPHILS % (AUTO) 0.8 % (0-1); EOSINOPHILS # (AUTO) 0.2 X10'3 (0-0.9); EOSINOPHILS % (AUTO) 2.9 % (0-6); HEMATOCRIT 42.3 % (42.0-52.0); HEMOGLOBIN 14.9 g/dl (14.0-17.9); LYMPHOCYTES # (AUTO) 2.1 X10'3 (1.1-4.8); LYMPHOCYTES % (AUTO) 28.9 % (21-51); MEAN CORPUSCULAR HEMOGLOBIN 31.1 PG (27.0-31.0); MEAN CORPUSCULAR HGB CONC 35.2 g/dL (33.0-36.5); MEAN CORPUSCULAR VOLUME 88.4 FL (78-98); MEAN PLATELET VOLUME 8.6 FL (7.4-10.4); MONOCYTES # (AUTO) 0.8 X10'3 (0-0.9); MONOCYTES % (AUTO) 10.5 % (2-12); NEUTROPHILS # (AUTO) 4.2 X10'3 (1.8-7.7); NEUTROPHILS % (AUTO) 56.9 % (42-75); PLATELET COUNT 212 X10'3 (140-440); RED BLOOD COUNT 4.79 X10'6 (4.70-6.10); WHITE BLOOD COUNT 7.4 X10'3 (4.5-11.0)
--- NOTE | 2019-03-31 06:21 | NUR ---
Problems reprioritized. Patient report given, questions answered & plan of care reviewed with IGOR Waterman. Pt stable at shift change
--- NOTE | 2019-03-31 06:45 | NUR ---
Patient in room PCU 3013. I have received report from Joni COSTA and had the opportunity to ask questions and assume patient care.
[2019-03-31 06:53] LABS: ALANINE AMINOTRANSFERASE 31 U/L (12-78); ALBUMIN 3.6 G/DL (3.4-5.0); ALBUMIN/GLOBULIN RATIO 1.1 (1.1-1.5); ALKALINE PHOSPHATASE 51 IU/L (46-116); ANION GAP 10 (8-16); ASPARTATE AMINO TRANSFERASE 39 U/L (10-37); BILIRUBIN,TOTAL 0.4 MG/DL (0.1-1.0); BLOOD UREA NITROGEN 5 MG/DL (7-18); BUN/CREATININE RATIO 5.4 (5.4-32.0); CALCIUM 8.6 MG/DL (8.5-10.1); CHLORIDE 108 MMOL/L (99-107); CREATININE 0.92 MG/DL (0.60-1.10); GLUCOSE 94 MG/DL (70-104); MAGNESIUM 1.9 MG/DL (1.5-2.4); POTASSIUM 3.7 MMOL/L (3.5-5.1); SODIUM 143 MMOL/L (135-145); TOTAL CARBON DIOXIDE 24.6 MMOL/L (24-32); TOTAL PROTEIN 6.8 G/DL (6.4-8.2); eGFR > 90 ML/MIN
[2019-03-31] MEDS: heparin, porcine 5000 units/ml vial SQ SCH (07:38)
[2019-03-31] MEDS: LORazepam 1 MG tablet PO PRN ×3 (08:09→18:40)
--- NOTE | 2019-03-31 10:42 | NUR ---
Neftali JEAN regarding new information from patient about being a smoker PAGER ID: [phone] MESSAGE: [id number] Anamaria Velázquez States that he smokes cigarettes and has been wanting to smoke. May I please have an order for nicotine patch? Domitila [facility] [phone]
[2019-03-31 11:00] VITALS: BP 107/67
[2019-03-31] MEDS: normal saline 1000ml 1,000 ML IV SCH (13:26)
[2019-03-31 15:00] VITALS: BP 119/66
--- NOTE | 2019-03-31 16:30 | NUR ---
Patient mother requested update for psych eval. I called [facility] and spoke with Twin, charge nurse, who stated that he will inform Truong and send him to see patient. On my way to update patient mother, garrett Mendoza sitting for patient called for my attention and stated that she thinks patient is in bathroom removing leads and IV. I check on patient who comes out saying "I'm just unhooking myself, getting ready to leave" as patient has been expecting to be cleared by [facility]. I re-educated patient that orders are needed to discontinue tele monitoring because of safety concerns especially because his heart is involved in his condition. PCU charge nurse was informed of the event and educated patient that because he is on a 1799 per Social Service evaluation, he cannot leave AMA for his own safety and that if he attempts to leave, police will become involved. Hospital security arrived and although patient was upset, he digressed and remained in his room. A few moments later[facility] and patient was provided with privacy.
[2019-03-31 18:00] VITALS: BP 112/66
--- NOTE | 2019-03-31 18:00 | NUR ---
Problems reprioritized. Patient report given, questions answered & plan of care reviewed with Rola COSTA.
[2019-03-31] MEDS ORDERED: nicotine 7mg patch - 24hr TD SCH (19:00)
--- NOTE | 2019-03-31 19:05 | NUR ---
Spoke with daphnie COSTA from [facility] he informed me pt does not meet criteria to stay in the hospital, spoke with Dr. Hogue pt can be discharged. mother was given information in regards to if pt makes suicidal statements again
--- NOTE | 2019-03-31 19:25 | NUR ---
went over educational packet with patient and let him know if symptoms worse or persist to come back, wheelchaired out Addendum: 03/31/19 at 1926 by Rola Lindo RN pt had all belongings with him accompanied by his mother Addendum: 03/31/19 at 1926 by Rola Lindo RN IV AND TELE MONITOR REMOVED
== END 2019-03-31 19:21 | disposition home or self-care (01) | DRG 812 ==
LOC: ER 18:10 → ED HOLD 22:00 → PCU 3S 22:22
PROVIDERS: ADMIT Internal Medicine; ATTEND Internal Medicine
DX: T43.621A Poisoning by amphetamines, accidental (unintentional), initial encounter (principal); I21.4 Non-ST elevation (NSTEMI) myocardial infarction; N17.9 Acute kidney failure, unspecified; E87.2 Acidosis; I50.30 Unspecified diastolic (congestive) heart failure; I11.0 Hypertensive heart disease with heart failure; F20.9 Schizophrenia, unspecified; F15.10 Other stimulant abuse, uncomplicated; F17.210 Nicotine dependence, cigarettes, uncomplicated; F41.9 Anxiety disorder, unspecified; F11.90 Opioid use, unspecified, uncomplicated; F29 Unspecified psychosis not due to a substance or known physiological condition; F32.9 Major depressive disorder, single episode, unspecified; R00.0 Tachycardia, unspecified; Z88.0 Allergy status to penicillin; Z88.5 Allergy status to narcotic agent; Z88.8 Allergy status to other drugs, medicaments and biological substances; Z71.51 Drug abuse counseling and surveillance of drug abuser; Y92.89 Other specified places as the place of occurrence of the external cause
CPT/HCPCS: 36415; 71045; 80053; 82550; 83605; 83735; 83880; 84484; 85025; 87081; 93005; 96372; 96374; 96375; 99285; G0378; J1630; J1644; J1650; J2060; J3490; J7030

== ENCOUNTER 2019-04-01 12:22 | Emergency (ER) | payer MEDICAID ==
[~2019-04-01] VITALS: Ht 170.2 cm; Wt 81.4 kg
[~2019-04-01 12:22] MED LIST changes: +SERT25TA PO
[2019-04-01] MEDS ORDERED: LORazepam 2 mg/ml vial IV ONE (14:10)
[2019-04-01 14:44] VITALS: BP 113/78
--- NOTE | 2019-04-01 14:45 | NUR ---
assisting RN with pt care, pt has ride home with friend, Jose, pt is calm and cooperative at this time, texting on phone
--- NOTE | 2019-04-01 15:00 | NUR ---
PT SITTING IN CHAIR. PT HR 123, ANXIOUS TO GO HOME, HIS RIDE IS WAITING IN THE CAR AND PT WANTS TO LEAVE. INFORMED HIM HEART RATE NEEDS TO GO DOWN PRIOR TO DISCHARGE.
[2019-04-02] MEDS ORDERED: LORA2TAB96 (23:28)
== END 2019-04-01 15:36 | disposition home or self-care (01) ==
LOC: ER 12:23
DX: R10.32 Left lower quadrant pain (principal); R06.02 Shortness of breath; R07.89 Other chest pain; R50.9 Fever, unspecified; F41.9 Anxiety disorder, unspecified; F32.9 Major depressive disorder, single episode, unspecified; F29 Unspecified psychosis not due to a substance or known physiological condition; F20.9 Schizophrenia, unspecified; F15.90 Other stimulant use, unspecified, uncomplicated; F11.90 Opioid use, unspecified, uncomplicated; Z56.0 Unemployment, unspecified; Z88.1 Allergy status to other antibiotic agents; Z88.0 Allergy status to penicillin; Z88.5 Allergy status to narcotic agent; Z79.899 Other long term (current) drug therapy
CPT/HCPCS: 74018; 93005; 96374; 99283; J2060

== ENCOUNTER 2019-04-02 20:53 | Emergency (ER) | payer MEDICAID ==
[~2019-04-02] VITALS: Ht 170.2 cm; Wt 81.0 kg
[2019-04-02 21:55] LABS: BASOPHILS # (AUTO) 0.1 X10'3 (0-0.2); BASOPHILS % (AUTO) 0.4 % (0-1); EOSINOPHILS % (AUTO) 0.2 % (0-6); HEMATOCRIT 47.2 % (42.0-52.0); HEMOGLOBIN 16.4 g/dl (14.0-17.9); LYMPHOCYTES # (AUTO) 2.4 X10'3 (1.1-4.8); LYMPHOCYTES % (AUTO) 14.2 % (21-51); MEAN CORPUSCULAR HEMOGLOBIN 30.7 PG (27.0-31.0); MEAN CORPUSCULAR HGB CONC 34.7 g/dL (33.0-36.5); MEAN CORPUSCULAR VOLUME 88.4 FL (78-98); MEAN PLATELET VOLUME 8.4 FL (7.4-10.4); MONOCYTES # (AUTO) 2.2 X10'3 (0-0.9); MONOCYTES % (AUTO) 12.9 % (2-12); NEUTROPHILS # (AUTO) 12.3 X10'3 (1.8-7.7); NEUTROPHILS % (AUTO) 72.3 % (42-75); PLATELET COUNT 237 X10'3 (140-440); RED BLOOD COUNT 5.34 X10'6 (4.70-6.10)
[2019-04-02 22:10] LABS: ALANINE AMINOTRANSFERASE 56 U/L (12-78); ALBUMIN 4.8 G/DL (3.4-5.0); ALBUMIN/GLOBULIN RATIO 1.3 (1.1-1.5); ALKALINE PHOSPHATASE 74 IU/L (46-116); ANION GAP 16 (8-16); ASPARTATE AMINO TRANSFERASE 110 U/L (10-37); BILIRUBIN,TOTAL 1.2 MG/DL (0.1-1.0); BLOOD UREA NITROGEN 25 MG/DL (7-18); BUN/CREATININE RATIO 16.9 (5.4-32.0); CALCIUM 9.6 MG/DL (8.5-10.1); CHLORIDE 101 MMOL/L (99-107); CREATININE 1.48 MG/DL (0.60-1.10); ETHANOL < 0.010 GM/DL (0.0-0.010); GLUCOSE 110 MG/DL (70-104); POTASSIUM 3.4 MMOL/L (3.5-5.1); SODIUM 140 MMOL/L (135-145); TOTAL CARBON DIOXIDE 23.4 MMOL/L (24-32); TOTAL PROTEIN 8.4 G/DL (6.4-8.2); eGFR 55 ML/MIN
[2019-04-02] MEDS ORDERED: normal saline 1000ML IV soln IVB ONE (22:20)
[2019-04-02] MEDS ORDERED: LORazepam 2 mg/ml vial IV ONE (22:20)
[2019-04-02] MEDS ORDERED: LORA2TAB96 (23:28)
--- NOTE | 2019-04-02 23:48 | NUR ---
PT reports he is unable to void, attempted but not able to urinate at this time.
[2019-04-03] MEDS ORDERED: haloperidol 5mg tablet PO ONE (01:05)
[2019-04-03] MEDS ORDERED: LORazepam 1 MG tablet PO ONE (01:05)
[2019-04-03 01:26] LABS: URINE AMPHETAMINE SCREEN POSITIVE (Neg); URINE BARBITUATE SCREEN NEGATIVE (Neg); URINE BENZODIAZEPINES SCREEN NEGATIVE (Neg); URINE CANNABINOID SCREEN POSITIVE (Neg); URINE COCAINE SCREEN NEGATIVE (Neg); URINE METHADONE SCREEN NEGATIVE (Neg); URINE OPIATE SCREEN NEGATIVE (Neg); URINE PHENCYCLIDINE SCREEN NEGATIVE (Neg)
--- NOTE | 2019-04-03 01:45 | NUR ---
Patient delisional and agitated. PO Benadryl and Ativan given per VO from .
--- NOTE | 2019-04-03 02:43 | NUR ---
Packet faxed to [facility]. Unable to confirm receipt of packet as [id number] hours.
[2019-04-03] MEDS ORDERED: LORazepam 2 mg/ml vial IM ONE (02:45)
[2019-04-03] MEDS ORDERED: haloperidol lactate 5mg/ml inj IM ONE (02:45)
[2019-04-03] MEDS ORDERED: diphenhydrAMINE 50 mg/ml inj IM ONE (02:45)
--- NOTE | 2019-04-03 02:59 | NUR ---
Patient is awake, out of bed, attempting to visit other patient beds. Patient redirected to his own bed. Patient is oriented X3 yet delusional. Patient exhibits agitation, states "I want to sleep." Patient given IM Benadryl/Ativan/Haldol. A sitter is monitoring patient at bedside. Patient exhibited no effects from Ativan and Haldol given over an hour prior. Plan to closely monitor this patient.
[2019-04-03] MEDS ORDERED: LORazepam 1 MG tablet PO PRN (03:20)
--- NOTE | 2019-04-03 05:30 | NUR ---
No AM vitals as per RN.
--- NOTE | 2019-04-03 05:49 | NUR ---
Patient sleeping suping position. Green tube blood draw for six hour troponin.
--- NOTE | 2019-04-03 06:30 | NUR ---
Pt asleep in the bed, has been medicated by operation shift supervisor RN. Eyes closed, respirations normal
[2019-04-03] MEDS ORDERED: sertraline 25mg tablet PO SCH (08:00)
--- NOTE | 2019-04-03 10:41 | NUR ---
Still asleep. Respirations normal
--- NOTE | 2019-04-03 14:43 | NUR ---
Pt up walking around. States he ate lunch, voided in restroom
[2019-04-03 17:23] VITALS: BP 106/58
== END 2019-04-03 20:13 ==
LOC: ER 20:53
DX: R45.851 Suicidal ideations (principal); F15.10 Other stimulant abuse, uncomplicated; F41.9 Anxiety disorder, unspecified; F32.9 Major depressive disorder, single episode, unspecified; F20.9 Schizophrenia, unspecified; F17.200 Nicotine dependence, unspecified, uncomplicated; F11.90 Opioid use, unspecified, uncomplicated; F10.99 Alcohol use, unspecified with unspecified alcohol-induced disorder; Z56.0 Unemployment, unspecified; Z88.1 Allergy status to other antibiotic agents; Z88.0 Allergy status to penicillin; Z88.5 Allergy status to narcotic agent; Z88.8 Allergy status to other drugs, medicaments and biological substances; Z79.899 Other long term (current) drug therapy; Y90.9 Presence of alcohol in blood, level not specified
CPT/HCPCS: 36415; 71045; 80053; 80305; 80320; 84484; 85025; 93005; 96372; 96374; 99284; J1200; J1630; J2060; J7030

== ENCOUNTER 2019-06-05 12:15 | Emergency (ER) | payer MEDICAID ==
[~2019-06-05] VITALS: Ht 172.7 cm; Wt 72.7 kg
[~2019-06-05 12:15] MED LIST changes: +LORA2TAB96; -LORA2TAB96 PO
--- NOTE | 2019-06-05 13:24 | NUR ---
PT BIB SO ON A WRITTEN 5150. PT IS UNWILLING TO TALK, DIFFICULTY TO GET HIM TO ASK QUESTIONS. PT DENIES AUDIO/VISUAL HALLUCINATIONS, DENIES THOUGHTS OF HURTING HIMSELF OR OTHERS HOWEVER ON THE 5150 PT IS QUOTED SAYING ", , , " TO HIS MOTHER. PT IS COOPERATIVE AND NON-CONFRONTATIONAL
[2019-06-05 13:29] LABS: URINE AMPHETAMINE SCREEN NEGATIVE (Neg); URINE BARBITUATE SCREEN NEGATIVE (Neg); URINE BENZODIAZEPINES SCREEN NEGATIVE (Neg); URINE CANNABINOID SCREEN NEGATIVE (Neg); URINE COCAINE SCREEN NEGATIVE (Neg); URINE METHADONE SCREEN NEGATIVE (Neg); URINE OPIATE SCREEN NEGATIVE (Neg); URINE PHENCYCLIDINE SCREEN NEGATIVE (Neg)
[2019-06-05 13:30] LABS: CLARITY,URINE CLEAR (Clear); COLOR,URINE YELLOW (Yellow); GLUCOSE, URINE NEGATIVE (Neg); KETONES,URINE 40 mg/dl (Neg); LEUKOCYTE ESTERASE ,URINE NEGATIVE (Neg); NITRITES, URINE NEGATIVE (Neg); OCCULT BLOOD,URINE NEGATIVE (Neg); PH,URINE 5.5 (4.8-8.0); PROTEIN,URINE NEGATIVE (Neg); UROBILINOGEN,URINE 0.2 E.U/dL (0.2-1.0)
[2019-06-05 13:33] LABS: UA COLLECTION TYPE VOIDED
[2019-06-05 13:56] LABS: BASOPHILS % (AUTO) 0.4 % (0-1); EOSINOPHILS % (AUTO) 0.5 % (0-6); HEMATOCRIT 44.1 % (42.0-52.0); HEMOGLOBIN 15.2 g/dl (14.0-17.9); LYMPHOCYTES % (AUTO) 18.2 % (21-51); MEAN CORPUSCULAR HGB CONC 34.5 g/dL (33.0-36.5); MEAN PLATELET VOLUME 8.7 FL (7.4-10.4); MONOCYTES # (AUTO) 0.5 X10'3 (0-0.9); MONOCYTES % (AUTO) 8.7 % (2-12); NEUTROPHILS # (AUTO) 3.9 X10'3 (1.8-7.7); NEUTROPHILS % (AUTO) 72.2 % (42-75); PLATELET COUNT 227 X10'3 (140-440); RED CELL DISTRIBUTION WIDTH 12.6 % (11.5-14.5); WHITE BLOOD COUNT 5.4 X10'3 (4.5-11.0)
[2019-06-05] MEDS ORDERED: NO HOME MEDS (13:56)
[2019-06-05 14:18] LABS: ALANINE AMINOTRANSFERASE 33 U/L (12-78); ALBUMIN 4.5 G/DL (3.4-5.0); ALBUMIN/GLOBULIN RATIO 1.4 (1.1-1.5); ALKALINE PHOSPHATASE 60 IU/L (46-116); ANION GAP 9 (8-16); ASPARTATE AMINO TRANSFERASE 29 U/L (10-37); BILIRUBIN,TOTAL 0.5 MG/DL (0.1-1.0); BLOOD UREA NITROGEN 13 MG/DL (7-18); BUN/CREATININE RATIO 15.1 (5.4-32.0); CALCIUM 9.2 MG/DL (8.5-10.1); CHLORIDE 105 MMOL/L (99-107); CREATININE 0.86 MG/DL (0.60-1.10); GLUCOSE 110 MG/DL (70-104); POTASSIUM 4.2 MMOL/L (3.5-5.1); SODIUM 139 MMOL/L (135-145); TOTAL CARBON DIOXIDE 25.2 MMOL/L (24-32); TOTAL PROTEIN 7.8 G/DL (6.4-8.2); eGFR > 90 ML/MIN
[2019-06-05 14:22] LABS: ETHANOL < 0.010 GM/DL (0.0-0.010)
--- NOTE | 2019-06-05 15:04 | NUR ---
Pt standing by bed. Pt has suspicious stare and some thought blocking when questioned.
--- NOTE | 2019-06-05 15:08 | NUR ---
PACKET FAXED TO [facility] OFF[facility]
[2019-06-05] MEDS ORDERED: OLANZapine 5mg rapidly disint. tablet PO ONE (15:50)
--- NOTE | 2019-06-05 16:00 | NUR ---
Pt took zydis 5mg at 1551 with a lot of reassurance and persuading by this nurse. Pt family friend, Jesus, visiting with pt.
--- NOTE | 2019-06-05 17:02 | NUR ---
Break nurse for primary nurse. Pt is calm and cooperative, however, the patient is standing and pacing in the room. Pt remains under constant supervision.
[2019-06-05 17:14] VITALS: BP 104/75
[2019-06-05] MEDS ORDERED: LORazepam 1 MG tablet PO ONE (20:15)
--- NOTE | 2019-06-05 20:24 | NUR ---
nurse to nurse was done for pt's possible placement at [facility], awaiting if pt is accepted or not.
[2019-06-05] MEDS ORDERED: OLANZapine 5mg rapidly disint. tablet PO SCH (21:00)
[2019-06-06] MEDS ORDERED: OLANZapine 5mg rapidly disint. tablet PO SCH (08:00)
== END 2019-06-05 22:18 ==
LOC: ER 12:15
DX: F20.9 Schizophrenia, unspecified (principal); F41.9 Anxiety disorder, unspecified; F32.9 Major depressive disorder, single episode, unspecified; F15.90 Other stimulant use, unspecified, uncomplicated; F11.90 Opioid use, unspecified, uncomplicated; Z72.89 Other problems related to lifestyle; Z56.0 Unemployment, unspecified; Z88.1 Allergy status to other antibiotic agents; Z88.2 Allergy status to sulfonamides; Z88.0 Allergy status to penicillin; Z88.5 Allergy status to narcotic agent; Z88.8 Allergy status to other drugs, medicaments and biological substances
CPT/HCPCS: 36415; 80053; 80305; 80320; 81003; 84443; 85025; 99285

== ENCOUNTER 2019-09-03 22:50 | Inpatient (IN) | payer MEDICAID ==
[~2019-09-03] VITALS: Ht 172.7 cm; Wt 80.8 kg
[~2019-09-03 22:50] MED LIST changes: -LORA2TAB96; +NO HOME MEDS; -SERT25TA PO
--- NOTE | 2019-09-03 22:54 | NUR ---
VIRAL Mcfarland and MD Gabriela at bedside evaluating pt. at this time. Orders received.
[2019-09-03] MEDS ORDERED: magnesium 2GM in 50ml NS 50 ML IV ONE (22:55)
[2019-09-03] MEDS ORDERED: normal saline 1000ML IV soln IVB ONE ×2 (22:55→23:55)
[2019-09-03] MEDS ORDERED: LORazepam 2 mg/ml vial IV ONE ×2 (22:55→23:10)
[2019-09-03 23:06] LABS: BASOPHILS # (AUTO) 0.1 X10'3 (0-0.2); BASOPHILS % (AUTO) 0.4 % (0-1); EOSINOPHILS % (AUTO) 0.3 % (0-6); HEMATOCRIT 51.4 % (42.0-52.0); HEMOGLOBIN 16.8 g/dl (14.0-17.9); LYMPHOCYTES # (AUTO) 1.9 X10'3 (1.1-4.8); LYMPHOCYTES % (AUTO) 12.7 % (21-51); MEAN CORPUSCULAR HEMOGLOBIN 30.3 PG (27.0-31.0); MEAN CORPUSCULAR HGB CONC 32.6 g/dL (33.0-36.5); MEAN PLATELET VOLUME 8.5 FL (7.4-10.4); MONOCYTES # (AUTO) 0.7 X10'3 (0-0.9); MONOCYTES % (AUTO) 4.7 % (2-12); NEUTROPHILS % (AUTO) 81.9 % (42-75); PLATELET COUNT 286 X10'3 (140-440); RED BLOOD COUNT 5.53 X10'6 (4.70-6.10); RED CELL DISTRIBUTION WIDTH 13.2 % (11.5-14.5); WHITE BLOOD COUNT 14.7 X10'3 (4.5-11.0)
[2019-09-03 23:33] LABS: ALANINE AMINOTRANSFERASE 28 U/L (12-78); ALBUMIN 4.7 G/DL (3.4-5.0); ALBUMIN/GLOBULIN RATIO 1.3 (1.1-1.5); ALKALINE PHOSPHATASE 71 IU/L (46-116); ANION GAP 22 (8-16); ASPARTATE AMINO TRANSFERASE 26 U/L (10-37); BILIRUBIN,TOTAL 0.4 MG/DL (0.1-1.0); BLOOD UREA NITROGEN 18 MG/DL (7-18); BUN/CREATININE RATIO 8.7 (5.4-32.0); CALCIUM 9.2 MG/DL (8.5-10.1); CHLORIDE 108 MMOL/L (99-107); CREATINE KINASE 294 U/L (39-308); CREATININE 2.07 MG/DL (0.60-1.10); ETHANOL < 0.010 GM/DL (0.0-0.010); GLUCOSE 147 MG/DL (70-104); MAGNESIUM 2.2 MG/DL (1.5-2.4); POTASSIUM 3.9 MMOL/L (3.5-5.1); SODIUM 147 MMOL/L (135-145); TOTAL CARBON DIOXIDE 17.2 MMOL/L (24-32); TOTAL PROTEIN 8.2 G/DL (6.4-8.2); eGFR 38 ML/MIN
[2019-09-03 23:34] LABS: VALPROATE < 3.0 UG/ML (50-100)
[2019-09-03 23:35] LABS: ACETAMINOPHEN < 2.0 UG/ML (10-30)
[2019-09-03] MEDS ORDERED: aspirin 81mg tab.chew PO ONE (23:45)
[2019-09-04] VITALS (20 sets, daily range): BP systolic 90–164; BP diastolic 53–103
[2019-09-04 00:13] LABS: URINE AMPHETAMINE SCREEN POSITIVE (Neg); URINE BARBITUATE SCREEN NEGATIVE (Neg); URINE BENZODIAZEPINES SCREEN POSITIVE (Neg); URINE CANNABINOID SCREEN NEGATIVE (Neg); URINE COCAINE SCREEN NEGATIVE (Neg); URINE METHADONE SCREEN NEGATIVE (Neg); URINE OPIATE SCREEN NEGATIVE (Neg); URINE PHENCYCLIDINE SCREEN NEGATIVE (Neg)
[2019-09-04] MEDS ORDERED: LORazepam 2 mg/ml vial IV ONE ×2 (00:30→00:55)
[2019-09-04] MEDS ORDERED: normal saline 1000ML IV soln IVB ONE (00:35)
[2019-09-04] MEDS ORDERED: metoprolol tartrate 1mg/ml inj IV ONE ×2 (01:20→02:50)
[2019-09-04] MEDS ORDERED: ondansetron/PF 4mg/2ml inj IV PRN (01:20)
[2019-09-04] MEDS: K, MAG and/or Phos replacement - Verify level? MC SCH ×2 (01:20→07:56)
[2019-09-04] MEDS ORDERED: potassium CL 10mEq/100ml bag 100 ML IV PRN (01:20)
[2019-09-04] MEDS ORDERED: acetaminophen 325mg tablet PO PRN ×2 (01:20)
[2019-09-04] MEDS ORDERED: potassium Cl 20 mEq SR tablet PO PRN ×2 (01:20)
[2019-09-04] MEDS ORDERED: insulin Lispro (HumaLOG) vial - multi-dose SQ SCH (01:25)
[2019-09-04] MEDS ORDERED: LORazepam 2 mg/ml vial IV PRN (01:25)
[2019-09-04] MEDS ORDERED: glucagon, human recombinant 1mg kit SUBCUT PRN (01:25)
[2019-09-04] MEDS ORDERED: dextrose 50%-water 50ml dispensing syringe IV PRN ×2 (01:25)
[2019-09-04] MEDS ORDERED: MESSAGE TO PHARMACY PO ONE (01:25)
[2019-09-04] MEDS ORDERED: dextrose ORAL solution 15 GM/59 ML bottle PO PRN ×2 (01:25)
[2019-09-04] MEDS: normal saline 1000ml 1,000 ML IV SCH ×3 (02:08→20:26)
--- NOTE | 2019-09-04 03:00 | NUR ---
Patient in room CICU 2010. I have received report from Alec COSTA and had the opportunity to ask questions and assume patient care. Patient walked from gurney to bed. Patients skin in tact. Patient confused at this time and talking about satan. Patient will not stop playing with equipment that is hooked up to him. Patient keeps attempting to het out of bed. Sitter at bedside.
[2019-09-04] MEDS: LORazepam 2 mg/ml vial IV PRN ×6 (03:02→23:38)
--- NOTE | 2019-09-04 03:57 | NUR ---
Patient continues to talk about Satan. Asking if "we are Satans here?" Patient continues to try to get out of bed. Will continue to monitor closely.
--- NOTE | 2019-09-04 06:31 | NUR ---
Patient in room [facility] 2010. I have received report from Katrina COSTA and had the opportunity to ask questions and assume patient care. Addendum: 09/04/19 at 0631 by aKya Helton RN Amended: Links added.
--- NOTE | 2019-09-04 10:02 | NUR ---
Pt. noted to have snorted something per the sitter's report. Pt. had a small clear bag with white powder in it in his hand. Pt. placed it in his mouth and began to chew when nursing staff asked for the bag. Pt. became combative, security was called. Charge nurse and Dr. Mendez notified. Pt. spit bag out and it was given to security to dispose of. Pt. has orders to transfer to the floor.
--- NOTE | 2019-09-04 10:26 | NUR ---
Pt. sweaty and shaking. HR 155. Ativan 2MG IV given per order.
--- NOTE | 2019-09-04 10:52 | NUR ---
Dr. Mendez aware of pt's increased heart rate in the 160s. Orders received for Esmolol IVP and restraints.
[2019-09-04] MEDS: esmolol 10mg/ml inj IV PRN ×4 (11:19→17:51)
--- NOTE | 2019-09-04 13:24 | NUR ---
Medicated again with Ativan and Esmolol for agitation and increased heart rate (respectively).
--- NOTE | 2019-09-04 18:20 | NUR ---
Patient in room CICU 2010. I have received report from IGOR Kirkpatrick and had the opportunity to ask questions and assume patient care. Patient is calm and resting comfortably with sitter present, restraints are in place. He is A&Ox3 and answers questions appropriately, follows commands, but seems a little paranoid.
[2019-09-04] MEDS: insulin glargine (Lantus) pen - multi-dose SQ SCH (21:00)
[2019-09-05] VITALS (22 sets, daily range): BP systolic 97–164; BP diastolic 49–104
[2019-09-05] MEDS: LORazepam 2 mg/ml vial IV PRN (02:15)
--- NOTE | 2019-09-05 02:45 | NUR ---
Patient very agitated, Ativan 2mg given with no relief. He is yelling out and speaking in tongues, shaking with increased heart rate. Per VIRAL Prater ok to give Haldol 5mg IM now.
[2019-09-05] MEDS ORDERED: haloperidol lactate 5mg/ml inj IM ONE (02:50)
[2019-09-05] MEDS: esmolol 10mg/ml inj IV PRN (03:02)
--- NOTE | 2019-09-05 03:08 | NUR ---
Patient very agitated still, per Ramiro Jay given Ativan 1mg and Benadryl 50mg IM now.
[2019-09-05] MEDS ORDERED: diphenhydrAMINE 50 mg/ml inj IM ONE (03:10)
[2019-09-05] MEDS ORDERED: LORazepam 2 mg/ml vial IM ONE (03:10)
[2019-09-05 05:06] LABS: BASOPHILS % (AUTO) 0.4 % (0-1); EOSINOPHILS % (AUTO) 0.4 % (0-6); HEMATOCRIT 45.6 % (42.0-52.0); HEMOGLOBIN 15.4 g/dl (14.0-17.9); LYMPHOCYTES # (AUTO) 1.6 X10'3 (1.1-4.8); MEAN CORPUSCULAR HEMOGLOBIN 30.7 PG (27.0-31.0); MEAN CORPUSCULAR HGB CONC 33.7 g/dL (33.0-36.5); MEAN CORPUSCULAR VOLUME 91.1 FL (78-98); MEAN PLATELET VOLUME 8.8 FL (7.4-10.4); MONOCYTES # (AUTO) 0.8 X10'3 (0-0.9); MONOCYTES % (AUTO) 8.1 % (2-12); NEUTROPHILS # (AUTO) 7.4 X10'3 (1.8-7.7); NEUTROPHILS % (AUTO) 75.1 % (42-75); PLATELET COUNT 179 X10'3 (140-440); RED CELL DISTRIBUTION WIDTH 12.8 % (11.5-14.5); WHITE BLOOD COUNT 9.8 X10'3 (4.5-11.0)
[2019-09-05 05:20] LABS: ALANINE AMINOTRANSFERASE 1496 U/L (12-78); ALBUMIN 3.8 G/DL (3.4-5.0); ALBUMIN/GLOBULIN RATIO 1.3 (1.1-1.5); ALKALINE PHOSPHATASE 53 IU/L (46-116); ANION GAP 10 (8-16); ASPARTATE AMINO TRANSFERASE 1453 U/L (10-37); BILIRUBIN,TOTAL 1.1 MG/DL (0.1-1.0); BLOOD UREA NITROGEN 13 MG/DL (7-18); BUN/CREATININE RATIO 12.3 (5.4-32.0); CALCIUM 8.4 MG/DL (8.5-10.1); CHLORIDE 106 MMOL/L (99-107); CREATININE 1.06 MG/DL (0.60-1.10); GLUCOSE 67 MG/DL (70-104); PHOSPHORUS 2.2 MG/DL (2.3-4.5); SODIUM 142 MMOL/L (135-145); TOTAL CARBON DIOXIDE 25.8 MMOL/L (24-32); TOTAL PROTEIN 6.7 G/DL (6.4-8.2); eGFR 81 ML/MIN
[2019-09-05 05:24] LABS: TROPONIN I 3.89 NG/ML (0.0-0.05)
[2019-09-05] MEDS: potassium CL 10mEq/100ml bag 100 ML IV PRN ×3 (05:35→08:46)
--- NOTE | 2019-09-05 06:45 | NUR ---
Patient in room CICU 2010. I have received report from Viviana COSTA and had the opportunity to ask questions and assume patient care.
--- NOTE | 2019-09-05 06:45 | NUR ---
[facility]. I have received report from Kena COSTA and had the opportunity to ask questions and assume patient care. Addendum: 09/05/19 at 1156 by Ruma West RN emilie bowman
[2019-09-05] MEDS: normal saline 1000ml 1,000 ML IV SCH ×2 (07:07→17:18)
[2019-09-05] MEDS: K, MAG and/or Phos replacement - Verify level? MC SCH (08:00)
--- NOTE | 2019-09-05 10:40 | NUR ---
Problems reprioritized. Patient report given, questions answered & plan of care reviewed with Jailyn COSTA.
--- NOTE | 2019-09-05 10:40 | NUR ---
Patient in room [facility] 2010. I have received report from Ruma COSTA and had the opportunity to ask questions and assume patient care.
--- NOTE | 2019-09-05 20:00 | NUR ---
Pt refused blood glucose test.
[2019-09-05] MEDS: insulin glargine (Lantus) pen - multi-dose SQ SCH (21:00)
[2019-09-06 02:29] VITALS: BP 101/57
[2019-09-06] MEDS: normal saline 1000ml 1,000 ML IV SCH (03:38)
[2019-09-06 04:12] VITALS: BP 99/58
[2019-09-06 05:29] LABS: BASOPHILS % (AUTO) 0.4 % (0-1); EOSINOPHILS # (AUTO) 0.3 X10'3 (0-0.9); EOSINOPHILS % (AUTO) 3.6 % (0-6); HEMATOCRIT 44.2 % (42.0-52.0); HEMOGLOBIN 14.8 g/dl (14.0-17.9); LYMPHOCYTES # (AUTO) 2.1 X10'3 (1.1-4.8); LYMPHOCYTES % (AUTO) 23.9 % (21-51); MEAN CORPUSCULAR HEMOGLOBIN 30.8 PG (27.0-31.0); MEAN CORPUSCULAR HGB CONC 33.5 g/dL (33.0-36.5); MEAN PLATELET VOLUME 8.7 FL (7.4-10.4); MONOCYTES # (AUTO) 0.8 X10'3 (0-0.9); MONOCYTES % (AUTO) 9.1 % (2-12); NEUTROPHILS # (AUTO) 5.6 X10'3 (1.8-7.7); PLATELET COUNT 192 X10'3 (140-440); RED CELL DISTRIBUTION WIDTH 12.9 % (11.5-14.5); WHITE BLOOD COUNT 8.9 X10'3 (4.5-11.0)
[2019-09-06 05:52] LABS: ALANINE AMINOTRANSFERASE 1138 U/L (12-78); ALBUMIN 3.3 G/DL (3.4-5.0); ALBUMIN/GLOBULIN RATIO 1.1 (1.1-1.5); ALKALINE PHOSPHATASE 53 IU/L (46-116); ANION GAP 7 (8-16); ASPARTATE AMINO TRANSFERASE 541 U/L (10-37); BILIRUBIN,TOTAL 0.6 MG/DL (0.1-1.0); BLOOD UREA NITROGEN 11 MG/DL (7-18); BUN/CREATININE RATIO 13.6 (5.4-32.0); CALCIUM 8.4 MG/DL (8.5-10.1); CHLORIDE 108 MMOL/L (99-107); CREATININE 0.81 MG/DL (0.60-1.10); GLUCOSE 99 MG/DL (70-104); MAGNESIUM 1.9 MG/DL (1.5-2.4); PHOSPHORUS 2.4 MG/DL (2.3-4.5); POTASSIUM 3.5 MMOL/L (3.5-5.1); SODIUM 142 MMOL/L (135-145); TOTAL CARBON DIOXIDE 26.8 MMOL/L (24-32); TOTAL PROTEIN 6.2 G/DL (6.4-8.2); eGFR > 90 ML/MIN
[2019-09-06] MEDS: K, MAG and/or Phos replacement - Verify level? MC SCH (06:19)
[2019-09-06 07:00] VITALS: BP 104/67
--- NOTE | 2019-09-06 07:24 | NUR ---
Pt. refused AM blood glucose test.
[2019-09-06 08:00] VITALS: BP 117/58
[2019-09-06 09:00] VITALS: BP 131/78
--- NOTE | 2019-09-06 11:25 | NUR ---
Patient was ambulatory and walked down to [facility] with superintendent ammunition storage. Patient had all of his belongings, (wet pants, shirt, and belt) due to the wetness and smell, patient was given new clothes to wear out. Explained discharge paperwork, DC'd pivx2 from either wrist, and patient left to stay with his mother, Kelly Ocampo.
== END 2019-09-06 11:25 | disposition home or self-care (01) | DRG 422 ==
LOC: ER 22:50 → ED HOLD 09-04 01:28 → CICU 2S 09-04 02:27
PROVIDERS: ADMIT Internal Medicine Critical Care Medicine; ATTEND Internal Medicine Critical Care Medicine
DX: E86.0 Dehydration (principal); N17.9 Acute kidney failure, unspecified; I24.8 Other forms of acute ischemic heart disease; I95.9 Hypotension, unspecified; F20.9 Schizophrenia, unspecified; F15.10 Other stimulant abuse, uncomplicated; F11.90 Opioid use, unspecified, uncomplicated; Z88.0 Allergy status to penicillin; Z88.8 Allergy status to other drugs, medicaments and biological substances; F43.10 Post-traumatic stress disorder, unspecified; Z88.1 Allergy status to other antibiotic agents; F41.9 Anxiety disorder, unspecified; F17.210 Nicotine dependence, cigarettes, uncomplicated; R00.0 Tachycardia, unspecified; I10 Essential (primary) hypertension; F32.9 Major depressive disorder, single episode, unspecified
CPT/HCPCS: 36415; 71045; 80053; 80164; 80178; 80305; 80320; 80329; 82550; 82948; 83036; 83605; 83735; 84100; 84132; 84484; 85025; 85610; 87040; 87081; 93005; 99291; G0378; J1200; J1630; J1815; J2060; J3475; J3480; J3490; J7030

== ENCOUNTER 2019-11-15 16:11 | Emergency (ER) | payer MEDICAID ==
[~2019-11-15] VITALS: Ht 172.7 cm; Wt 76.4 kg
[2019-11-15 16:14] VITALS: BP 124/83
[2019-11-15 16:34] LABS: BASOPHILS % (AUTO) 0.7 % (0-1); EOSINOPHILS # (AUTO) 0.1 X10'3 (0-0.9); EOSINOPHILS % (AUTO) 0.9 % (0-6); HEMATOCRIT 48.6 % (42.0-52.0); HEMOGLOBIN 16.6 g/dl (14.0-17.9); LYMPHOCYTES # (AUTO) 1.9 X10'3 (1.1-4.8); LYMPHOCYTES % (AUTO) 29.3 % (21-51); MEAN CORPUSCULAR HEMOGLOBIN 31.2 PG (27.0-31.0); MEAN CORPUSCULAR HGB CONC 34.2 g/dL (33.0-36.5); MEAN CORPUSCULAR VOLUME 91.2 FL (78-98); MEAN PLATELET VOLUME 8.7 FL (7.4-10.4); MONOCYTES # (AUTO) 0.6 X10'3 (0-0.9); MONOCYTES % (AUTO) 10.1 % (2-12); NEUTROPHILS # (AUTO) 3.8 X10'3 (1.8-7.7); PLATELET COUNT 228 X10'3 (140-440); RED BLOOD COUNT 5.32 X10'6 (4.70-6.10); RED CELL DISTRIBUTION WIDTH 13.6 % (11.5-14.5); WHITE BLOOD COUNT 6.4 X10'3 (4.5-11.0)
[2019-11-15 16:49] LABS: ALANINE AMINOTRANSFERASE 24 U/L (12-78); ALBUMIN 4.3 G/DL (3.4-5.0); ALBUMIN/GLOBULIN RATIO 1.2 (1.1-1.5); ALKALINE PHOSPHATASE 64 IU/L (46-116); ANION GAP 10 (8-16); ASPARTATE AMINO TRANSFERASE 18 U/L (10-37); BILIRUBIN,TOTAL 0.7 MG/DL (0.1-1.0); BLOOD UREA NITROGEN 14 MG/DL (7-18); BUN/CREATININE RATIO 11.5 (5.4-32.0); CALCIUM 8.7 MG/DL (8.5-10.1); CHLORIDE 106 MMOL/L (99-107); CREATININE 1.22 MG/DL (0.60-1.10); GLUCOSE 88 MG/DL (70-104); LIPASE 91 U/L (73-393); POTASSIUM 4.1 MMOL/L (3.5-5.1); SODIUM 143 MMOL/L (135-145); TOTAL CARBON DIOXIDE 26.8 MMOL/L (24-32); eGFR 69 ML/MIN
[2019-11-15] MEDS ORDERED: famotidine 10mg tablet PO STA (17:12)
[2019-11-15] MEDS ORDERED: pantoprazole 40mg Tablet.DR PO ONE (17:15)
[2019-11-15] MEDS ORDERED: ondansetron 4mg rapidly disintigrating tab PO ONE (17:15)
[2019-11-15] MEDS ORDERED: PANT-47 PO (17:16)
== END 2019-11-15 17:35 | disposition home or self-care (01) ==
LOC: ER 16:11
DX: K21.9 Gastro-esophageal reflux disease without esophagitis (principal); R10.13 Epigastric pain; R07.9 Chest pain, unspecified; F41.9 Anxiety disorder, unspecified; F32.9 Major depressive disorder, single episode, unspecified; F20.9 Schizophrenia, unspecified; F11.90 Opioid use, unspecified, uncomplicated; F15.90 Other stimulant use, unspecified, uncomplicated; Z72.89 Other problems related to lifestyle; Z56.0 Unemployment, unspecified; Z88.0 Allergy status to penicillin; Z88.1 Allergy status to other antibiotic agents; Z88.5 Allergy status to narcotic agent; Z79.899 Other long term (current) drug therapy
CPT/HCPCS: 36415; 80053; 83690; 85025; 99284

== ENCOUNTER 2020-01-30 01:26 | Emergency (ER) | payer MEDICAID ==
[~2020-01-30] VITALS: Ht 172.7 cm; Wt 66.8 kg
[~2020-01-30 01:26] MED LIST changes: +PANT-47 PO
--- NOTE | 2020-01-30 01:47 | NUR ---
pt offered food and drink but declines politely
[2020-01-30] MEDS ORDERED: normal saline 1000ML IV soln IVB ONE (02:40)
[2020-01-30 02:51] LABS: BASOPHILS % (AUTO) 0.3 % (0-1); EOSINOPHILS % (AUTO) 0.1 % (0-6); HEMATOCRIT 49.1 % (42.0-52.0); LYMPHOCYTES # (AUTO) 0.9 X10'3 (1.1-4.8); LYMPHOCYTES % (AUTO) 6.6 % (21-51); MEAN CORPUSCULAR HEMOGLOBIN 31.4 PG (27.0-31.0); MEAN CORPUSCULAR HGB CONC 34.6 g/dL (33.0-36.5); MEAN CORPUSCULAR VOLUME 90.8 FL (78-98); MEAN PLATELET VOLUME 10.6 FL (7.4-10.4); MONOCYTES # (AUTO) 0.6 X10'3 (0-0.9); MONOCYTES % (AUTO) 4.3 % (2-12); NEUTROPHILS # (AUTO) 11.7 X10'3 (1.8-7.7); NEUTROPHILS % (AUTO) 88.7 % (42-75); PLATELET COUNT 223 X10'3 (140-440); RED CELL DISTRIBUTION WIDTH 12.2 % (11.5-14.5); WHITE BLOOD COUNT 13.2 X10'3 (4.5-11.0)
[2020-01-30 03:00] LABS: ALANINE AMINOTRANSFERASE 28 U/L (12-78); ALBUMIN 4.9 G/DL (3.4-5.0); ALBUMIN/GLOBULIN RATIO 1.4 (1.1-1.5); ALKALINE PHOSPHATASE 63 IU/L (46-116); ANION GAP 15 (8-16); ASPARTATE AMINO TRANSFERASE 20 U/L (10-37); BILIRUBIN,TOTAL 0.6 MG/DL (0.1-1.0); BLOOD UREA NITROGEN 17 MG/DL (7-18); BUN/CREATININE RATIO 14.7 (5.4-32.0); CALCIUM 9.1 MG/DL (8.5-10.1); CHLORIDE 102 MMOL/L (99-107); CREATININE 1.16 MG/DL (0.60-1.10); GLUCOSE 203 MG/DL (70-104); POTASSIUM 3.3 MMOL/L (3.5-5.1); SODIUM 139 MMOL/L (135-145); TOTAL CARBON DIOXIDE 22.3 MMOL/L (24-32); TOTAL PROTEIN 8.3 G/DL (6.4-8.2); eGFR 73 ML/MIN
[2020-01-30 03:03] LABS: ETHANOL < 0.010 GM/DL (0.0-0.010)
[2020-01-30] MEDS ORDERED: LORazepam 2 mg/ml vial IV ONE (03:15)
--- NOTE | 2020-01-30 04:52 | NUR ---
patient arrived in unit and is sitting quietly on his bed.
[2020-01-30 05:03] LABS: URINE AMPHETAMINE SCREEN POSITIVE (Neg); URINE BARBITUATE SCREEN NEGATIVE (Neg); URINE BENZODIAZEPINES SCREEN NEGATIVE (Neg); URINE CANNABINOID SCREEN NEGATIVE (Neg); URINE COCAINE SCREEN NEGATIVE (Neg); URINE METHADONE SCREEN NEGATIVE (Neg); URINE OPIATE SCREEN NEGATIVE (Neg); URINE PHENCYCLIDINE SCREEN NEGATIVE (Neg)
--- NOTE | 2020-01-30 05:10 | NUR ---
patient is pacing unit. redirects easily
--- NOTE | 2020-01-30 06:57 | NUR ---
pt is awake. resting in his room
--- NOTE | 2020-01-30 08:00 | NUR ---
pt is pacing around.
--- NOTE | 2020-01-30 09:00 | NUR ---
pt is walking around
--- NOTE | 2020-01-30 10:00 | NUR ---
pt is pacing around
--- NOTE | 2020-01-30 11:30 | NUR ---
breaking primary RN. pt is sitting up in bed, awake, calm
--- NOTE | 2020-01-30 12:30 | NUR ---
Breaking primary RN, pt is in bed, awake, no s/s of agitation observed
--- NOTE | 2020-01-30 12:37 | NUR ---
Patient has been accepted to [facility]. ETA for the county recycling collections driver is [id number]. Patient was accepted by Dr. Florentino. Destiny from [facility], relayed this information.
--- NOTE | 2020-01-30 13:00 | NUR ---
pt is pacing around
--- NOTE | 2020-01-30 14:00 | NUR ---
pt is pacing
--- NOTE | 2020-01-30 15:00 | NUR ---
pt is pacing around
--- NOTE | 2020-01-30 16:34 | NUR ---
pt is resting. no issues
--- NOTE | 2020-01-30 17:45 | NUR ---
PT IS PACING AROUND UNIT
--- NOTE | 2020-01-30 18:33 | NUR ---
REPORT TAKEN FROM NINA COSTA. PT CONTINUES TO WALK UNIT; DOES NOT APPEAR TO BE IN DISTRESS AND DOES NOT LOOK LIKE IS WANTING TO ELOPE. WILL CONTINUE TO MONITOR.
--- NOTE | 2020-01-30 18:42 | NUR ---
[facility] HERE FOR PT
[2020-01-30 18:49] VITALS: BP 91/64
== END 2020-01-30 18:53 ==
LOC: ER 01:27
DX: F19.10 Other psychoactive substance abuse, uncomplicated (principal); F60.0 Paranoid personality disorder; F41.9 Anxiety disorder, unspecified; F32.9 Major depressive disorder, single episode, unspecified; F20.9 Schizophrenia, unspecified; F29 Unspecified psychosis not due to a substance or known physiological condition; F15.90 Other stimulant use, unspecified, uncomplicated; F11.90 Opioid use, unspecified, uncomplicated; Z56.0 Unemployment, unspecified; Z88.1 Allergy status to other antibiotic agents; Z88.5 Allergy status to narcotic agent; Z79.899 Other long term (current) drug therapy
CPT/HCPCS: 36415; 80053; 80305; 80320; 84443; 85025; 96361; 96374; 99285; J2060; J7030

== ENCOUNTER 2020-02-03 21:10 | Emergency (ER) | payer MEDICAID ==
[~2020-02-03] VITALS: Ht 172.7 cm; Wt 69.9 kg
[~2020-02-03 21:10] MED LIST changes: -PANT-47 PO
--- NOTE | 2020-02-03 21:53 | NUR ---
Patient brought straight back from Triage. Patient states he was recently released from [facility]. Hx: S/I with multiple attempts, ADD, and Schizophrenia. Patient took a taxi to the hospital. Patient states he is depressed and feeling suicidal. Plan: Overdose on medications. Patient is well oriented, he denies taking any overdose. Good eye contact. Normal voice, rate, rhythm, and tone. Patient is polite, linear of thought, "life has been hard lately."
--- NOTE | 2020-02-03 22:08 | NUR ---
Labs are being drawn, patient is cooperative with staff. A urine sample was obtained and sent for analysis.
--- NOTE | 2020-02-03 22:26 | NUR ---
Patient has been evaluated by PA. BENTLEY Seroquel being ordered.
[2020-02-03] MEDS ORDERED: quetiapine 100mg tablet PO ONE (22:30)
[2020-02-03 22:39] LABS: BASOPHILS % (AUTO) 0.6 % (0-1); EOSINOPHILS # (AUTO) 0.1 X10'3 (0-0.9); EOSINOPHILS % (AUTO) 0.9 % (0-6); HEMATOCRIT 45.8 % (42.0-52.0); HEMOGLOBIN 15.9 g/dl (14.0-17.9); LYMPHOCYTES # (AUTO) 1.9 X10'3 (1.1-4.8); LYMPHOCYTES % (AUTO) 25.3 % (21-51); MEAN CORPUSCULAR HEMOGLOBIN 31.6 PG (27.0-31.0); MEAN CORPUSCULAR HGB CONC 34.9 g/dL (33.0-36.5); MEAN CORPUSCULAR VOLUME 90.6 FL (78-98); MEAN PLATELET VOLUME 9.4 FL (7.4-10.4); MONOCYTES # (AUTO) 0.5 X10'3 (0-0.9); NEUTROPHILS % (AUTO) 66.2 % (42-75); PLATELET COUNT 201 X10'3 (140-440); RED BLOOD COUNT 5.05 X10'6 (4.70-6.10); RED CELL DISTRIBUTION WIDTH 12.2 % (11.5-14.5); WHITE BLOOD COUNT 7.5 X10'3 (4.5-11.0)
[2020-02-03] MEDS ORDERED: QUET-1 PO (22:47)
[2020-02-03 22:48] LABS: ALANINE AMINOTRANSFERASE 24 U/L (12-78); ALBUMIN 4.2 G/DL (3.4-5.0); ALBUMIN/GLOBULIN RATIO 1.3 (1.1-1.5); ALKALINE PHOSPHATASE 54 IU/L (46-116); ANION GAP 7 (8-16); ASPARTATE AMINO TRANSFERASE 16 U/L (10-37); BILIRUBIN,TOTAL 0.3 MG/DL (0.1-1.0); BLOOD UREA NITROGEN 11 MG/DL (7-18); BUN/CREATININE RATIO 12.5 (5.4-32.0); CALCIUM 8.9 MG/DL (8.5-10.1); CHLORIDE 105 MMOL/L (99-107); CREATININE 0.88 MG/DL (0.60-1.10); ETHANOL < 0.010 GM/DL (0.0-0.010); GLUCOSE 137 MG/DL (70-104); POTASSIUM 3.6 MMOL/L (3.5-5.1); SODIUM 143 MMOL/L (135-145); TOTAL CARBON DIOXIDE 31.4 MMOL/L (24-32); TOTAL PROTEIN 7.4 G/DL (6.4-8.2); eGFR > 90 ML/MIN
[2020-02-03 22:55] LABS: ACETAMINOPHEN < 2.0 UG/ML (10-30)
[2020-02-03 22:59] LABS: URINE AMPHETAMINE SCREEN NEGATIVE (Neg); URINE BARBITUATE SCREEN NEGATIVE (Neg); URINE BENZODIAZEPINES SCREEN NEGATIVE (Neg); URINE CANNABINOID SCREEN NEGATIVE (Neg); URINE COCAINE SCREEN NEGATIVE (Neg); URINE METHADONE SCREEN NEGATIVE (Neg); URINE OPIATE SCREEN NEGATIVE (Neg); URINE PHENCYCLIDINE SCREEN NEGATIVE (Neg)
--- NOTE | 2020-02-03 23:04 | NUR ---
Patilent resting quietly, mid fowlers in bed. Patient is compliant with HS Seroques Rx.
--- NOTE | 2020-02-03 23:05 | NUR ---
Med Rec: Seroquel 300 mg QHS ordered by VIRAL Patel Patient states he has an Rx for Adderall and Ativan. Unable to verify. Patient uses [facility] in [facility]. Info will be passed to next shift RN.
[2020-02-04] MEDS ORDERED: traZODone 50mg tablet PO ONE (01:55)
--- NOTE | 2020-02-04 01:57 | NUR ---
Patient eating food at bedside, he is sitting up. Patient complains of problem sleeping. 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 Prather, an order for trazadone was sent to pharmacy. Patient exhibiting mild anxiety, he remains cooperative with staff.
--- NOTE | 2020-02-04 02:07 | NUR ---
Heavenlyt given Trazadone 100mg as a sleep aid.
--- NOTE | 2020-02-04 03:14 | NUR ---
PATIENT'S PACKET WAS SENT TO [facility].
--- NOTE | 2020-02-04 03:51 | NUR ---
Patient sleeping quietly, low fowlers position in bed.
--- NOTE | 2020-02-04 05:58 | NUR ---
Patient sleeping quietly on her left side. Addendum: 02/04/20 at 0558 by JOSUÉ His left side.
--- NOTE | 2020-02-04 06:30 | NUR ---
Resting quietly with eyes closed, respirations normal
--- NOTE | 2020-02-04 09:30 | NUR ---
Resting with eyes closed. Didnt eat breakfast
--- NOTE | 2020-02-04 14:32 | NUR ---
Resting with eyes closed, respirations normal
--- NOTE | 2020-02-04 14:56 | NUR ---
[facility]
--- NOTE | 2020-02-04 15:07 | NUR ---
Mother Kelly contact info:
--- NOTE | 2020-02-04 16:15 | NUR ---
Asking for meds, only prescribed Seroquel at hs. Back to bed, using hospital phone.
--- NOTE | 2020-02-04 17:22 | NUR ---
Resting quietly in bed, respirations normal.
--- NOTE | 2020-02-04 18:25 | NUR ---
Patient reclining, awake in bed. No distress observed. Continue to monitor.
--- NOTE | 2020-02-04 19:38 | NUR ---
Patient keeps getting up and using the restroom. RN finally knocked on the door and patient said he was alright. Continue to monitor.
--- NOTE | 2020-02-04 20:24 | NUR ---
Patient laying on right side. Patient is awake and trying to sleep. No distress observed. Continue to monitor.
[2020-02-04] MEDS: quetiapine 100mg tablet PO SCH (21:18)
--- NOTE | 2020-02-05 09:47 | NUR ---
Breaking primary RN, pt is supine in bed, asleep, no regular breathing present, no needs at this time
--- NOTE | 2020-02-05 10:58 | NUR ---
breaking primary RN, pt is asleep on his right side, regular breathing present, no needs at this time
--- NOTE | 2020-02-05 12:20 | NUR ---
Resting with eyes closed, respirations normal
[2020-02-05 17:53] VITALS: BP 95/68
--- NOTE | 2020-02-05 19:12 | NUR ---
Pt was laying in bed at change of shift. Pt states he no longer feels suicidal and wants to leave. Pt states he only feels anxiety and wants some ativan. Pt became slightly agitated with [facility] worker when he was told he would be seen tomorrow. Pt asked if someone else can release him from the hold is [facility] wont do it tonight. [facility] suggested pt work on a safety plan tonight and consider a drug tx program or moving in with family and they will talk with him tomorrow.
[2020-02-05] MEDS ORDERED: diphenhydrAMINE 25mg capsule PO ONE (19:30)
[2020-02-05] MEDS: quetiapine 100mg tablet PO SCH (20:06)
--- NOTE | 2020-02-05 20:13 | NUR ---
received call from [facility] pt has been accepted and will be transferred tonight. Pt states "Ok cool." Pt is in bed resting comfortably. RR even and unlabored.
[2020-02-06] MEDS ORDERED: nicotine 7mg patch - 24hr TD SCH (08:00)
== END 2020-02-05 21:46 ==
LOC: ER 21:11
DX: R45.851 Suicidal ideations (principal); F41.9 Anxiety disorder, unspecified; F32.9 Major depressive disorder, single episode, unspecified; F20.9 Schizophrenia, unspecified; F15.90 Other stimulant use, unspecified, uncomplicated; F11.90 Opioid use, unspecified, uncomplicated; Z56.0 Unemployment, unspecified; Z88.1 Allergy status to other antibiotic agents; Z88.0 Allergy status to penicillin; Z88.5 Allergy status to narcotic agent; Z79.899 Other long term (current) drug therapy
CPT/HCPCS: 36415; 80053; 80305; 80320; 80329; 85025; 99285; Q0163

== ENCOUNTER 2020-02-09 00:04 | Emergency (ER) | payer MEDICAID ==
[~2020-02-09] VITALS: Ht 172.7 cm; Wt 65.9 kg
[~2020-02-09 00:04] MED LIST changes: +NICO-687 TD; -NO HOME MEDS; +QUET-1 PO; +VENL75CA61 PO
[2020-02-09 00:48] LABS: HEMOGLOBIN 15.7 g/dl (14.0-17.9); MEAN CORPUSCULAR HGB CONC 34.4 g/dL (33.0-36.5)
[2020-02-09 00:50] LABS: BASOPHILS % (AUTO) 0.5 % (0-1); EOSINOPHILS % (AUTO) 0.7 % (0-6); HEMATOCRIT 45.6 % (42.0-52.0); LYMPHOCYTES # (AUTO) 2.3 X10'3 (1.1-4.8); LYMPHOCYTES % (AUTO) 30.7 % (21-51); MEAN CORPUSCULAR HEMOGLOBIN 31.2 PG (27.0-31.0); MEAN CORPUSCULAR VOLUME 90.5 FL (78-98); MEAN PLATELET VOLUME 8.5 FL (7.4-10.4); MONOCYTES # (AUTO) 0.7 X10'3 (0-0.9); MONOCYTES % (AUTO) 8.9 % (2-12); NEUTROPHILS # (AUTO) 4.4 X10'3 (1.8-7.7); NEUTROPHILS % (AUTO) 59.2 % (42-75); PLATELET COUNT 217 X10'3 (140-440); RED BLOOD COUNT 5.04 X10'6 (4.70-6.10); RED CELL DISTRIBUTION WIDTH 12.3 % (11.5-14.5); WHITE BLOOD COUNT 7.4 X10'3 (4.5-11.0)
[2020-02-09 01:00] LABS: ALANINE AMINOTRANSFERASE 21 U/L (12-78); ALBUMIN 4.3 G/DL (3.4-5.0); ALBUMIN/GLOBULIN RATIO 1.3 (1.1-1.5); ALKALINE PHOSPHATASE 58 IU/L (46-116); ANION GAP 9 (8-16); ASPARTATE AMINO TRANSFERASE 18 U/L (10-37); BILIRUBIN,TOTAL 0.6 MG/DL (0.1-1.0); BLOOD UREA NITROGEN 15 MG/DL (7-18); BUN/CREATININE RATIO 16.3 (5.4-32.0); CALCIUM 9.3 MG/DL (8.5-10.1); CHLORIDE 103 MMOL/L (99-107); CREATININE 0.92 MG/DL (0.60-1.10); GLUCOSE 89 MG/DL (70-104); SODIUM 141 MMOL/L (135-145); TOTAL CARBON DIOXIDE 28.8 MMOL/L (24-32); TOTAL PROTEIN 7.6 G/DL (6.4-8.2); eGFR > 90 ML/MIN
[2020-02-09 01:12] LABS: ETHANOL < 0.010 GM/DL (0.0-0.010)
--- NOTE | 2020-02-09 01:44 | NUR ---
VALUABLES HAVE BEEN RECEIVED AND LOCKED UP BY REGISTRATION
[2020-02-09 02:14] LABS: URINE AMPHETAMINE SCREEN POSITIVE (Neg); URINE BARBITUATE SCREEN NEGATIVE (Neg); URINE BENZODIAZEPINES SCREEN NEGATIVE (Neg); URINE CANNABINOID SCREEN NEGATIVE (Neg); URINE COCAINE SCREEN NEGATIVE (Neg); URINE METHADONE SCREEN NEGATIVE (Neg); URINE OPIATE SCREEN NEGATIVE (Neg); URINE PHENCYCLIDINE SCREEN NEGATIVE (Neg)
--- NOTE | 2020-02-09 13:13 | NUR ---
PATIENT INQUIRING ABOUT MEDCIATION THAT WERE GIVEN TO HIM IN [facility]. UPDATED MED REC WILL INFORM
[2020-02-09] MEDS ORDERED: VENL37.55 PO (13:38)
[2020-02-09] MEDS ORDERED: QUET-1 PO (13:38)
[2020-02-09] MEDS ORDERED: NICO-687 TOP (13:38)
--- NOTE | 2020-02-09 13:51 | NUR ---
MED REC FAXED TO RX
--- NOTE | 2020-02-09 13:59 | NUR ---
ATE LUNCH AND IS AWAKE AND RESTING ON LEFT SIDE.
[2020-02-09] MEDS ORDERED: NICO-731 TOP (14:02)
[2020-02-09] MEDS ORDERED: venlafaxine XR 37.5mg cap (Q24H) PO SCH (14:15)
[2020-02-09] MEDS ORDERED: nicotine 14mg patch - 24hr TD SCH (14:15)
--- NOTE | 2020-02-09 14:28 | NUR ---
UP TO BATHROOM
--- NOTE | 2020-02-09 15:00 | NUR ---
SLEEPING ON BACK.
--- NOTE | 2020-02-09 16:00 | NUR ---
AWAKE AND RESTING COMFORTABLY.
--- NOTE | 2020-02-09 16:26 | NUR ---
PATIENT HAS BEEN ACCEPTED AT [facility] BY JAZZ GALLARDO AT 1552, VP OF MARKETING TIME TODAY 191. NURSE TO NURSE REPORT GIVEN AT 1545 TO ANN.
--- NOTE | 2020-02-09 17:08 | NUR ---
AWAKE AND RESTING COMFORTABLY.
--- NOTE | 2020-02-09 18:01 | NUR ---
LAYING ON BACK AWAKE, RESTING COMFORTABLY.
--- NOTE | 2020-02-09 18:58 | NUR ---
Patient is mid fowlers position in bed. No distress. Patient not showing signs of anxiety. Patient ate a full dinner. He made a phone call to friends/family. He is cooperative with staff and well oriented. At this time transportation to [facility] is pending.
[2020-02-09 20:02] VITALS: BP 109/68
[2020-02-09] MEDS ORDERED: quetiapine 100mg tablet PO SCH (21:00)
== END 2020-02-09 20:09 ==
LOC: ER 00:04
DX: R45.851 Suicidal ideations (principal); F41.9 Anxiety disorder, unspecified; F32.9 Major depressive disorder, single episode, unspecified; F20.9 Schizophrenia, unspecified; F15.90 Other stimulant use, unspecified, uncomplicated; F11.90 Opioid use, unspecified, uncomplicated; Z56.0 Unemployment, unspecified; Z88.1 Allergy status to other antibiotic agents; Z88.0 Allergy status to penicillin; Z88.8 Allergy status to other drugs, medicaments and biological substances; Z79.899 Other long term (current) drug therapy
CPT/HCPCS: 36415; 80053; 80305; 80320; 84443; 85025; 99285

== ENCOUNTER 2020-02-15 00:51 | Emergency (ER) | payer MEDICAID ==
[~2020-02-15] VITALS: Ht 162.6 cm; Wt 68.2 kg
[~2020-02-15 00:51] MED LIST changes: -NICO-687 TD; +NICO-731 TOP; +VENL37.55 PO; -VENL75CA61 PO
[2020-02-15 00:57] VITALS: BP 133/91
== END 2020-02-15 01:56 | disposition home or self-care (01) ==
LOC: ER 00:51
DX: F32.9 Major depressive disorder, single episode, unspecified (principal); R45.851 Suicidal ideations; F41.9 Anxiety disorder, unspecified; F20.9 Schizophrenia, unspecified; F15.90 Other stimulant use, unspecified, uncomplicated; F11.90 Opioid use, unspecified, uncomplicated; Z56.0 Unemployment, unspecified; Z88.1 Allergy status to other antibiotic agents; Z88.0 Allergy status to penicillin; Z88.5 Allergy status to narcotic agent; Z88.8 Allergy status to other drugs, medicaments and biological substances; Z79.899 Other long term (current) drug therapy
CPT/HCPCS: 99281

== ENCOUNTER 2020-02-21 16:57 | Emergency (ER) | payer MEDICAID ==
--- NOTE | 2020-02-21 17:51 | NUR ---
Patient not in lobby for the third time. Attempted to call patient, unable to leave voice mail due to voice mail box not being set up. Notified VIRAL Davenport regarding LBT.
== END 2020-02-21 17:54 | disposition left against medical advice (07) ==
LOC: ER 16:58
DX: Z00.00 Encounter for general adult medical examination without abnormal findings (principal); Z88.0 Allergy status to penicillin; Z88.1 Allergy status to other antibiotic agents; Z88.5 Allergy status to narcotic agent; Z53.21 Procedure and treatment not carried out due to patient leaving prior to being seen by health care provider

== ENCOUNTER 2020-08-10 01:36 | Emergency (ER) | payer MEDICAID ==
[~2020-08-10 01:36] MED LIST changes: -NICO-731 TOP; +NO HOME MEDS; -QUET-1 PO; -VENL37.55 PO
== END 2020-08-10 03:15 | disposition left against medical advice (07) ==
LOC: ER 01:37
DX: Z00.00 Encounter for general adult medical examination without abnormal findings (principal); Z53.21 Procedure and treatment not carried out due to patient leaving prior to being seen by health care provider

== ENCOUNTER 2020-10-06 20:07 | Emergency (ER) | payer MEDICAID ==
[~2020-10-06] VITALS: Ht 172.7 cm; Wt 63.6 kg
[2020-10-06 20:45] VITALS: BP 123/78
[2020-10-06] MEDS ORDERED: DOXY100C76 PO (21:53)
[2020-10-06] MEDS ORDERED: METR500T PO (21:53)
== END 2020-10-06 22:17 | disposition home or self-care (01) ==
LOC: ER 20:07
DX: S41.011A Laceration without foreign body of right shoulder, initial encounter (principal); F41.9 Anxiety disorder, unspecified; F32.9 Major depressive disorder, single episode, unspecified; F20.9 Schizophrenia, unspecified; F15.90 Other stimulant use, unspecified, uncomplicated; F11.90 Opioid use, unspecified, uncomplicated; Z56.0 Unemployment, unspecified; Z88.1 Allergy status to other antibiotic agents; Z88.0 Allergy status to penicillin; Z88.5 Allergy status to narcotic agent; Z88.8 Allergy status to other drugs, medicaments and biological substances; Z79.2 Long term (current) use of antibiotics; W54.0XXA Bitten by dog, initial encounter; Y93.89 Activity, other specified; Y92.89 Other specified places as the place of occurrence of the external cause; Y99.8 Other external cause status
CPT/HCPCS: 99283

== ENCOUNTER → 2020-12-05 | Emergency (ER) | payer MEDICAID | END | disposition left against medical advice (07) | LOC: ER 02:26 | DX: F41.9 Anxiety disorder, unspecified (principal); Z53.21 Procedure and treatment not carried out due to patient leaving prior to being seen by health care provider ==

== ENCOUNTER 2020-12-10 22:17 | Emergency (ER) | payer MEDICAID ==
[~2020-12-10] VITALS: Ht 172.7 cm; Wt 67.0 kg
[2020-12-11] MEDS ORDERED: LORazepam 1 MG tablet PO ONE (00:25)
[2020-12-11] MEDS ORDERED: LORA-269 PO (00:43)
--- NOTE | 2020-12-11 00:55 | NUR ---
attempted to call mother on both phone numbers in demographics for safe transportation home. no answer.
[2020-12-11 00:56] VITALS: BP 133/79
--- NOTE | 2020-12-11 01:00 | NUR ---
pt d/c by provider prior to ornamental brick installer
== END 2020-12-11 01:00 | disposition home or self-care (01) ==
LOC: ER 22:18
DX: F41.9 Anxiety disorder, unspecified (principal); F20.9 Schizophrenia, unspecified; F32.9 Major depressive disorder, single episode, unspecified; F15.90 Other stimulant use, unspecified, uncomplicated; F11.90 Opioid use, unspecified, uncomplicated; Z59.0 Homelessness; Z88.1 Allergy status to other antibiotic agents; Z88.0 Allergy status to penicillin; Z88.8 Allergy status to other drugs, medicaments and biological substances; Z79.899 Other long term (current) drug therapy; Z56.0 Unemployment, unspecified
CPT/HCPCS: 99283

== ENCOUNTER 2024-04-14 22:00 | Inpatient (IN) | payer MEDICAID ==
[~2024-04-14] VITALS: Ht 172.7 cm; Wt 62.5 kg
[~2024-04-14 22:00] MED LIST changes: +LORA-269 PO
[2024-04-14 23:31] LABS: BASOPHILS % (AUTO) 0.6 % (0-1); EOSINOPHILS # (AUTO) 0.3 X10'3 (0-0.9); EOSINOPHILS % (AUTO) 3.4 % (0-6); HEMATOCRIT 40.9 % (42.0-52.0); LYMPHOCYTES # (AUTO) 2.8 X10'3 (1.1-4.8); LYMPHOCYTES % (AUTO) 35.3 % (21-51); MEAN CORPUSCULAR HEMOGLOBIN 30.5 PG (27.0-31.0); MEAN CORPUSCULAR HGB CONC 34.2 g/dL (33.0-36.5); MEAN CORPUSCULAR VOLUME 89.4 FL (78-98); MEAN PLATELET VOLUME 7.9 FL (7.4-10.4); MONOCYTES # (AUTO) 0.9 X10'3 (0-0.9); NEUTROPHILS % (AUTO) 49.7 % (42-75); PLATELET COUNT 252 X10'3 (140-440); RED BLOOD COUNT 4.58 X10'6 (4.70-6.10); RED CELL DISTRIBUTION WIDTH 13.8 % (11.5-14.5)
[2024-04-14 23:50] LABS: ALBUMIN 3.4 G/DL (3.4-5.0); ANION GAP 7 (8-16); BLOOD UREA NITROGEN 15 MG/DL (7-18); BUN/CREATININE RATIO 17.6 (10.0-20.0); CALCIUM 8.3 MG/DL (8.5-10.1); CHLORIDE 108 MMOL/L (99-107); CREATININE 0.85 MG/DL (0.60-1.10); ETHANOL < 10 MG/DL (<10); GLUCOSE 93 MG/DL (70-104); POTASSIUM 3.6 MMOL/L (3.5-5.1); SODIUM 145 MMOL/L (135-145); THYROID STIMULATING HORMONE 1.45 ulU/ml (0.34-4.50); TOTAL CARBON DIOXIDE 30.2 MMOL/L (24-32); eCRCL 104 ML/MIN; eGFR > 90 ML/MIN
[2024-04-15 10:01] LABS: BILIRUBIN,URINE NEGATIVE (Neg); CLARITY,URINE CLEAR (Clear); COLOR,URINE YELLOW (Yellow); GLUCOSE, URINE NEGATIVE (Neg); KETONES,URINE NEGATIVE (Neg); LEUKOCYTE ESTERASE ,URINE NEGATIVE (Neg); NITRITES, URINE NEGATIVE (Neg); OCCULT BLOOD,URINE NEGATIVE (Neg); PROTEIN,URINE NEGATIVE (Neg); UROBILINOGEN,URINE 0.2 E.U/dL (0.2-1.0)
[2024-04-15 10:07] LABS: UA COLLECTION TYPE CLN CATCH MIDSTREAM
[2024-04-15 10:22] LABS: URINE AMPHETAMINE SCREEN POSITIVE (Neg); URINE BARBITUATE SCREEN NEGATIVE (Neg); URINE BENZODIAZEPINES SCREEN NEGATIVE (Neg); URINE CANNABINOID SCREEN NEGATIVE (Neg); URINE COCAINE SCREEN NEGATIVE (Neg); URINE METHADONE SCREEN NEGATIVE (Neg); URINE OPIATE SCREEN NEGATIVE (Neg); URINE PHENCYCLIDINE SCREEN NEGATIVE (Neg)
[2024-04-15] MEDS ORDERED: loperamide 2mg capsule PO PRN (21:35)
[2024-04-15] MEDS ORDERED: NICOTINE POLACRILEX 2 MG LOZENGE BC PRN (21:35)
[2024-04-15] MEDS ORDERED: magnesium hydroxide 30ml (MOM) UD suspension PO PRN (21:35)
[2024-04-15] MEDS ORDERED: mag hydrox/Alum hydrox/simeth 30ml oral suspension PO PRN (21:35)
[2024-04-15] MEDS ORDERED: acetaminophen 325mg tablet PO PRN ×2 (21:35)
[2024-04-15 23:25] VITALS: RESP 16; O2SAT 98
[2024-04-16 05:52] LABS: CHOL/HDL RATIO 2.4 (0.00-4.99); CHOLESTEROL 140 MG/DL (0-200); HDL CHOLESTEROL 58 MG/DL (35-60); TRIGLYCERIDES 99 MG/DL (20-135)
[2024-04-16 06:05] LABS: HEMOGLOBIN A1C 5.4 % (4.5-6.2); LDL CHOLESTEROL 72 MG/DL (50-100)
[2024-04-16 07:30] VITALS: BP 99/61; PULSE 77; RESP 16; TEMP 97.6; O2SAT 99
[2024-04-16] MEDS: nicotine 21mg patch - 24 hr TD SCH (08:00)
[2024-04-16 19:00] VITALS: RESP 18; O2SAT 100
[2024-04-16 19:35] VITALS: BP 110/77; PULSE 88; RESP 18; TEMP 97.8; O2SAT 100
[2024-04-17 07:30] VITALS: BP 101/56; PULSE 68; RESP 16; TEMP 98.5; O2SAT 98
[2024-04-17] MEDS: venlafaxine XR 37.5mg cap (Q24H) PO SCH (13:42)
[2024-04-17 19:00] VITALS: RESP 16; O2SAT 96
[2024-04-17 20:00] VITALS: BP 110/71; PULSE 100; RESP 16; TEMP 98.8; O2SAT 96
[2024-04-17] MEDS: gabapentin 300mg capsule PO SCH (20:33)
[2024-04-17] MEDS: haloperidol decanoate***LONG-ACTING*** 100mg/ml **IM only** inj. IM ONE (20:38)
[2024-04-17] MEDS ORDERED: haloperidol 5mg tablet PO SCH (21:00)
[2024-04-18 07:00] VITALS: RESP 14; O2SAT 96
[2024-04-18 08:00] VITALS: BP 106/62; PULSE 66; RESP 14; TEMP 97.8; O2SAT 96
[2024-04-18] MEDS: busPIRone 5mg tablet PO SCH (08:21)
[2024-04-18 19:00] VITALS: RESP 8; O2SAT 96
[2024-04-18 20:01] VITALS: BP 100/55; PULSE 66; RESP 20; TEMP 97.8; O2SAT 98
[2024-04-19 07:00] VITALS: RESP 15; O2SAT 97
[2024-04-19 08:00] VITALS: BP 107/69; PULSE 98; RESP 15; TEMP 97.4; O2SAT 97
[2024-04-19 19:00] VITALS: BP 106/58; PULSE 87; RESP 18; TEMP 98.8; O2SAT 98
[2024-04-20 07:00] VITALS: RESP 16; O2SAT 98
[2024-04-20 08:00] VITALS: BP 112/54; PULSE 88; RESP 16; TEMP 99.3; O2SAT 98
[2024-04-20 19:27] VITALS: BP 102/54; PULSE 85; RESP 16; TEMP 98.9; O2SAT 98
[2024-04-21 07:00] VITALS: RESP 18; O2SAT 100
[2024-04-21 08:00] VITALS: BP 100/62; PULSE 72; RESP 18; TEMP 98; O2SAT 100
[2024-04-21] MEDS: busPIRone 5mg tablet PO SCH (13:52)
[2024-04-21 19:50] VITALS: RESP 16
[2024-04-21] MEDS: traZODone 50mg tablet PO PRN (20:49)
[2024-04-21] MEDS: OLANZapine 5mg rapidly disint. tablet PO ONE (22:32)
[2024-04-22 07:00] VITALS: RESP 14; O2SAT 98
[2024-04-22 08:00] VITALS: BP 107/57; PULSE 90; RESP 14; TEMP 97.6; O2SAT 98
[2024-04-22 20:00] VITALS: RESP 16
[2024-04-23 07:00] VITALS: RESP 14; O2SAT 99
[2024-04-23 08:00] VITALS: BP 104/56; PULSE 69; RESP 14; TEMP 97.6; O2SAT 99
[2024-04-23 19:00] VITALS: BP 109/53; PULSE 79; RESP 16; TEMP 98.2; O2SAT 98
[2024-04-24 07:17] VITALS: BP 102/97; PULSE 97; RESP 16; TEMP 97.9; O2SAT 97
[2024-04-24 19:33] VITALS: BP 98/56; PULSE 108; RESP 14; TEMP 98.1; O2SAT 98
[2024-04-25 07:30] VITALS: BP 115/75; PULSE 82; RESP 14; TEMP 98.1; O2SAT 99
[2024-04-25 19:00] VITALS: RESP 14; O2SAT 97
[2024-04-25 19:31] VITALS: BP 104/56; PULSE 69; RESP 14; TEMP 98.5; O2SAT 97
[2024-04-26 07:00] VITALS: RESP 18; O2SAT 98
[2024-04-26 08:00] VITALS: BP 107/47; PULSE 92; RESP 18; TEMP 98.6; O2SAT 98
[2024-04-26 19:00] VITALS: RESP 16; O2SAT 97
[2024-04-26 20:00] VITALS: BP 110/67; PULSE 78; RESP 16; TEMP 97.4; O2SAT 97
[2024-04-26] MEDS: haloperidol 5mg tablet PO ONE (20:17)
[2024-04-27 07:19] VITALS: BP 96/57; PULSE 78; RESP 16; TEMP 98.7; O2SAT 96
[2024-04-27 09:05] VITALS: RESP 16; O2SAT 96
[2024-04-27] MEDS ORDERED: TRAZ-251 PO (11:52)
[2024-04-27] MEDS ORDERED: gabapentin capsule PO (11:52)
[2024-04-27] MEDS ORDERED: VENL37.59 PO (11:52)
[2024-04-28] MEDS ORDERED: venlafaxine XR 37.5mg cap (Q24H) PO SCH (08:00)
== END 2024-04-27 12:53 | disposition home or self-care (01) | DRG 751 ==
LOC: ER 22:01 → ADULT MH 04-15 20:50
PROVIDERS: ADMIT Psychiatry & Neurology Psychiatry; ATTEND Psychiatry & Neurology Psychiatry
PROC: GZHZZZZ Group Psychotherapy (ICD-10-PCS; principal; 2024-04-16)
PROC: GZ51ZZZ Individual Psychotherapy, Behavioral (ICD-10-PCS; 2024-04-16)
DX: F32.3 Major depressive disorder, single episode, severe with psychotic features (principal); F29 Unspecified psychosis not due to a substance or known physiological condition; F41.9 Anxiety disorder, unspecified; Z20.822 Contact with and (suspected) exposure to COVID-19; F15.90 Other stimulant use, unspecified, uncomplicated; F11.90 Opioid use, unspecified, uncomplicated; Z88.0 Allergy status to penicillin; Z88.1 Allergy status to other antibiotic agents; Z88.5 Allergy status to narcotic agent; Z88.8 Allergy status to other drugs, medicaments and biological substances; Z59.00 Homelessness unspecified; Z79.899 Other long term (current) drug therapy; Z83.3 Family history of diabetes mellitus
CPT/HCPCS: 36415; 80048; 80061; 80305; 80320; 81003; 83036; 84443; 85025; 87081; 87811; 99285

== ENCOUNTER 2024-05-16 08:56 | Emergency (ER) | payer MEDICAID ==
[~2024-05-16] VITALS: Ht 172.7 cm; Wt 65.5 kg
[~2024-05-16 08:56] MED LIST changes: -LORA-269 PO; -NO HOME MEDS; +TRAZ-251 PO; +VENL37.59 PO; +gabapentin capsule PO
[2024-05-16 08:58] VITALS: BP 113/80; PULSE 112; RESP 16; O2SAT 99
[2024-05-16 09:22] LABS: BILIRUBIN,URINE NEGATIVE (Neg); CLARITY,URINE CLEAR (Clear); COLOR,URINE YELLOW (Yellow); GLUCOSE, URINE NEGATIVE (Neg); KETONES,URINE TRACE mg/dl (Neg); LEUKOCYTE ESTERASE ,URINE NEGATIVE (Neg); NITRITES, URINE NEGATIVE (Neg); OCCULT BLOOD,URINE NEGATIVE (Neg); PH,URINE 5.5 (4.8-8.0); PROTEIN,URINE NEGATIVE (Neg); UROBILINOGEN,URINE 0.2 E.U/dL (0.2-1.0)
[2024-05-16 09:23] LABS: UA COLLECTION TYPE CLN CATCH MIDSTREAM; URINE AMPHETAMINE SCREEN POSITIVE (Neg); URINE BARBITUATE SCREEN NEGATIVE (Neg); URINE BENZODIAZEPINES SCREEN NEGATIVE (Neg); URINE CANNABINOID SCREEN POSITIVE (Neg); URINE COCAINE SCREEN NEGATIVE (Neg); URINE METHADONE SCREEN NEGATIVE (Neg); URINE OPIATE SCREEN NEGATIVE (Neg); URINE PHENCYCLIDINE SCREEN NEGATIVE (Neg)
[2024-05-16 09:53] LABS: BASOPHILS % (AUTO) 0.5 % (0-1); EOSINOPHILS # (AUTO) 0.1 X10'3 (0-0.9); EOSINOPHILS % (AUTO) 0.9 % (0-6); HEMATOCRIT 42.6 % (42.0-52.0); HEMOGLOBIN 14.3 g/dl (14.0-17.9); LYMPHOCYTES # (AUTO) 1.2 X10'3 (1.1-4.8); LYMPHOCYTES % (AUTO) 17.3 % (21-51); MEAN CORPUSCULAR HEMOGLOBIN 30.2 PG (27.0-31.0); MEAN CORPUSCULAR HGB CONC 33.6 g/dL (33.0-36.5); MEAN CORPUSCULAR VOLUME 89.9 FL (78-98); MEAN PLATELET VOLUME 7.3 FL (7.4-10.4); MONOCYTES # (AUTO) 0.8 X10'3 (0-0.9); MONOCYTES % (AUTO) 10.6 % (2-12); NEUTROPHILS # (AUTO) 5.1 X10'3 (1.8-7.7); NEUTROPHILS % (AUTO) 70.7 % (42-75); PLATELET COUNT 274 X10'3 (140-440); RED BLOOD COUNT 4.74 X10'6 (4.70-6.10); RED CELL DISTRIBUTION WIDTH 14.6 % (11.5-14.5); WHITE BLOOD COUNT 7.2 X10'3 (4.5-11.0)
[2024-05-16 10:15] LABS: ALBUMIN 3.1 G/DL (3.4-5.0); ANION GAP 9 (8-16); BLOOD UREA NITROGEN 17 MG/DL (7-18); BUN/CREATININE RATIO 21.8 (10.0-20.0); CALCIUM 7.9 MG/DL (8.5-10.1); CHLORIDE 106 MMOL/L (99-107); CREATININE 0.78 MG/DL (0.60-1.10); ETHANOL < 10 MG/DL (<10); GLUCOSE 130 MG/DL (70-104); POTASSIUM 3.6 MMOL/L (3.5-5.1); SODIUM 140 MMOL/L (135-145); THYROID STIMULATING HORMONE 0.39 ulU/ml (0.34-4.50); TOTAL CARBON DIOXIDE 25.2 MMOL/L (24-32); eCRCL 121 ML/MIN; eGFR > 90 ML/MIN
[2024-05-16 10:48] VITALS: TEMP 97.7
== END 2024-05-16 10:49 | disposition home or self-care (01) ==
LOC: ER 08:57
DX: R45.851 Suicidal ideations (principal); F15.20 Other stimulant dependence, uncomplicated; F11.21 Opioid dependence, in remission; F33.2 Major depressive disorder, recurrent severe without psychotic features; F90.0 Attention-deficit hyperactivity disorder, predominantly inattentive type; F41.9 Anxiety disorder, unspecified; F20.9 Schizophrenia, unspecified; F12.90 Cannabis use, unspecified, uncomplicated; Z88.0 Allergy status to penicillin; Z88.8 Allergy status to other drugs, medicaments and biological substances; Z20.822 Contact with and (suspected) exposure to COVID-19
CPT/HCPCS: 36415; 80048; 80305; 80320; 81003; 84443; 85025; 87811; 99283

== ENCOUNTER 2024-08-05 01:57 | Emergency (ER) | payer MEDICAID ==
[~2024-08-05] VITALS: Ht 172.7 cm; Wt 48.0 kg
[~2024-08-05 01:57] MED LIST changes: +HALO100A2 IM; -TRAZ-251 PO; +VENL150T3 PO; -VENL37.59 PO
[2024-08-05 01:58] VITALS: BP 145/65; PULSE 64; RESP 15; O2SAT 99
[2024-08-07] MEDS ORDERED: VENL150T3 PO (18:49)
== END 2024-08-05 03:31 | disposition home or self-care (01) ==
LOC: ER 01:58
DX: T75.89XA Other specified effects of external causes, initial encounter (principal); F15.10 Other stimulant abuse, uncomplicated; F41.9 Anxiety disorder, unspecified; F20.9 Schizophrenia, unspecified; F32.A Depression, unspecified; F11.90 Opioid use, unspecified, uncomplicated; Z56.0 Unemployment, unspecified; Z59.00 Homelessness unspecified; Z88.5 Allergy status to narcotic agent; Z88.1 Allergy status to other antibiotic agents; Z79.899 Other long term (current) drug therapy; X58.XXXA Exposure to other specified factors, initial encounter; Y93.89 Activity, other specified; Y92.89 Other specified places as the place of occurrence of the external cause; Y99.8 Other external cause status
CPT/HCPCS: 99281

== ENCOUNTER 2024-08-05 07:38 | Emergency (ER) | payer MEDICAID ==
[~2024-08-05] VITALS: Ht 172.7 cm; Wt 57.0 kg
[2024-08-05] MEDS: gentamicin 0.3% ophthalmic drops 5ML EACHEYE ONE (08:50)
[2024-08-05] MEDS: proparacaine 0.5% ophthalmic drops 15ml EACHEYE ONE (08:50)
[2024-08-05] MEDS: naphazoline/pheniramine eye 1 DROP BOTTLE EACHEYE PRN (08:54)
[2024-08-05 09:10] VITALS: BP 127/71; PULSE 87; RESP 16; TEMP 98; O2SAT 97
[2024-08-07] MEDS ORDERED: VENL150T3 PO (18:49)
== END 2024-08-05 09:14 | disposition home or self-care (01) ==
LOC: ER 07:38
DX: F41.9 Anxiety disorder, unspecified (principal); T65.891A Toxic effect of other specified substances, accidental (unintentional), initial encounter; H57.13 Ocular pain, bilateral; F32.A Depression, unspecified; F20.9 Schizophrenia, unspecified; F15.90 Other stimulant use, unspecified, uncomplicated; F11.90 Opioid use, unspecified, uncomplicated; F17.210 Nicotine dependence, cigarettes, uncomplicated; Z59.00 Homelessness unspecified; Z56.0 Unemployment, unspecified; Z79.899 Other long term (current) drug therapy; Z88.5 Allergy status to narcotic agent; Z88.1 Allergy status to other antibiotic agents; Y92.89 Other specified places as the place of occurrence of the external cause
CPT/HCPCS: 99284

== ENCOUNTER 2024-08-05 20:00 | Emergency (ER) | payer MEDICAID ==
[~2024-08-05] VITALS: Ht 172.7 cm; Wt 61.4 kg
[2024-08-05 20:19] VITALS: TEMP 98.7
[2024-08-05] MEDS ORDERED: QUEtiapine 25mg tablet PO SCH (20:45)
[2024-08-05] MEDS: LORazepam 1 MG tablet PO ONE (21:11)
[2024-08-05] MEDS: QUEtiapine 25mg tablet PO ONE (21:12)
[2024-08-06 01:40] VITALS: BP_DIAS 86
[2024-08-06 02:16] VITALS: BP_SYST 140; PULSE 101; RESP 16; O2SAT 99
[2024-08-07] MEDS ORDERED: VENL150T3 PO (18:49)
== END 2024-08-06 03:03 | disposition home or self-care (01) ==
LOC: ER 20:01
DX: F15.10 Other stimulant abuse, uncomplicated (principal); R45.851 Suicidal ideations; F20.9 Schizophrenia, unspecified; F32.A Depression, unspecified; F41.9 Anxiety disorder, unspecified; F11.90 Opioid use, unspecified, uncomplicated; Z88.0 Allergy status to penicillin; Z88.5 Allergy status to narcotic agent; Z88.8 Allergy status to other drugs, medicaments and biological substances
CPT/HCPCS: 93005; 99283

== ENCOUNTER 2024-09-14 14:58 | Emergency (ER) | payer MEDICAID ==
[~2024-09-14] VITALS: Ht 167.6 cm; Wt 64.6 kg
[~2024-09-14 14:58] MED LIST changes: +ARIP10TA87 PO; -HALO100A2 IM; +HYDR-3686 PO; +QUET100T34 PO; -gabapentin capsule PO
[2024-09-14 15:04] VITALS: BP 105/74; PULSE 6; RESP 16; O2SAT 95
--- NOTE | 2024-09-14 15:16 | Physician Documentation ---
History of Present Illness ~ Chief Complaint: Suicidal Ideation Stated Complaint: SI Time Seen by MD: 15:15 Primary Medical Doctor: N/A HPI This is a 38-year-old male with a history of methamphetamine use and schizophrenia. He presents today reporting that he is planning to harm himself by overdosing. Last use meth today or yesterday, and patient is concerned that it was "bad meth," and reports inability to move. He then sits back when directed to do so. He denies CP, dyspnea, N/V/D. Most recent admission to this hospital was 08/07/2024 through 08/23/2024 as a 5150 hold for suicidal ideation. Medication Reconciliation Allergies: Coded Allergies: Cephalexin Monohydrate (Verified Allergy, Unknown, 08/06/24) amoxicillin (Verified Allergy, Unknown, 08/06/24) clavulanic acid (Verified Allergy, Unknown, 08/06/24) codeine (Verified Allergy, Unknown, 08/06/24) Scheduled Aripiprazole (Aripiprazole), 20 MG PO DAILY Hydroxyzine Hcl* (Atarax*), 50 MG PO HS Quetiapine Fumarate (Quetiapine Fumarate), 200 MG PO HS Venlafaxine HCl (Venlafaxine HCl ER), 1 TAB PO DAILY Past Medical History Past Medical History: *PSYCH*, Anxiety, Depression, Psychosis, Schizophrenia Past Surgical History: no surgical history Patient History: Anxiety disorder FATHER (anxiety), , Cause: Diabetes, Not a twin Alcohol Use: None Drug Use: methamphetamine, heroin Lives with: Mother Lives In: Homeless Occupation: unemployed Review of Systems ROS As stated above in the HPI, otherwise all systems are reviewed and negative. Physical Exam Vital Signs: Temperature: 98.5, Source: Oral, Heart Rate: 6, Respiratory Rate: 16, BP: 105/74, Pulse Oximetry: 95, Weight: 64.600 Oxygen Flow Rate: 0 Physical Exam General: Alert, no apparent distress. Neck: Full range of motion. Respiratory: Lungs clear, no respiratory distress. Chest: No accessory muscle use. Cardiovascular: Regular rate and rhythm, no murmurs. Tachycardic. Gastrointestinal: Soft, nontender, nondistended. Bowels sounds present. Extremities: Normal range of motion, no deformity. Neurologic: Oriented x4. Psychiatric: Good eye contact, conversant, somewhat flat affect. Skin: Normal color, warm and dry. No edema, no ecchymosis. Progress Results/Orders Results/Orders Orders - SONJA GARCIA NP Urinalysis (09/14/24 15:18) Drug Screen, Urine (09/14/24 15:18) Ethanol (09/14/24 15:18) Med Rec (09/14/24 15:18) 1799.11 (09/14/24 15:18) BMP (09/14/24 15:18) Close Observation Level (09/14/24 15:18) Covid19 Binax Poc Result Entry (09/14/24 15:18) Substance Use Navigator (09/14/24 15:18) Regular Diet (09/14/24 Dinner) Lorazepam Tablet (Ativan Tablet) (09/14/24 16:30) Completed Orders - SONJA GARCIA NP Cbc/Diff (09/14/24 15:18) Vital Signs 09/14/24 15:04 Temp 98.5 Pulse 6 Resp 16 B/P (MAP) 105/74 Pulse Ox 95 O2 Flow Rate 0 Laboratory Tests Test 09/14/24 15:24 White Blood Count 7.9 Red Blood Count 4.71 Hemoglobin 13.7 L Hematocrit 40.9 L Mean Corpuscular Volume 86.8 Mean Corpuscular Hemoglobin 29.1 Mean Corpuscular Hemoglobin Concent 33.5 Red Cell Distribution Width 13.5 Platelet Count 261 Mean Platelet Volume 8.0 Neutrophils (%) (Auto) 64.0 Lymphocytes (%) (Auto) 20.7 L Monocytes (%) (Auto) 14.0 H Eosinophils (%) (Auto) 1.1 Basophils (%) (Auto) 0.2 Neutrophils # (Auto) 5.0 Lymphocytes # (Auto) 1.6 Monocytes # (Auto) 1.1 H Eosinophils # (Auto) 0.1 Basophils # (Auto) 0.0 CBC Comment Medical Decision Making Differential Dx:Considerations: Include: Alcohol abuse, Anxiety, Bipolar disorder, Conversion disorder, Depression, Encephaloathy, Homicidal, Panic disorder, Personality disorder, Schizophrenia, Substance abuse, Suicidal Departure Time of Disposition: 16:27 Impression: Primary Impression: Methamphetamine use disorder, moderate Additional Impression: Psychosis Condition: Stable Discharge Instructions: Methamphetamines Use Disorder, Psychosis Additional Instructions: Please do not use meth again. Your symptoms of anxiety are due to meth use, whic h causes psychosis. You were medicated for anxiety. See your primary care provider. Return if worse. Referrals: NO PRIMARY CARE PROVIDER (PCP) Education Educated: Patient Educated regarding: diagnosis, treatment, prognosis, need for follow up Signature Scribe Signature: No scribe Attestation: The note accurately reflects work and decisions made by me.Sonja Mayberry NP 09/14/24 15:20 SONJA GARCIA NP September 14, 2024 15:15
[2024-09-14 16:21] LABS: BASOPHILS % (AUTO) 0.2 % (0-1); EOSINOPHILS # (AUTO) 0.1 X10'3 (0-0.9); EOSINOPHILS % (AUTO) 1.1 % (0-6); HEMATOCRIT 40.9 % (42.0-52.0); HEMOGLOBIN 13.7 g/dl (14.0-17.9); LYMPHOCYTES # (AUTO) 1.6 X10'3 (1.1-4.8); LYMPHOCYTES % (AUTO) 20.7 % (21-51); MEAN CORPUSCULAR HEMOGLOBIN 29.1 PG (27.0-31.0); MEAN CORPUSCULAR HGB CONC 33.5 g/dL (33.0-36.5); MEAN CORPUSCULAR VOLUME 86.8 FL (78-98); MONOCYTES # (AUTO) 1.1 X10'3 (0-0.9); PLATELET COUNT 261 X10'3 (140-440); RED BLOOD COUNT 4.71 X10'6 (4.70-6.10); RED CELL DISTRIBUTION WIDTH 13.5 % (11.5-14.5); WHITE BLOOD COUNT 7.9 X10'3 (4.5-11.0)
[2024-09-14] MEDS ORDERED: LORazepam 0.5 MG tablet PO PRN (16:30)
[2024-09-14 16:37] VITALS: TEMP 98.5
[2024-09-14 17:28] LABS: ALBUMIN 3.6 G/DL (3.4-5.0); ANION GAP 8 (8-16); BLOOD UREA NITROGEN 14 MG/DL (7-18); BUN/CREATININE RATIO 13.5 (10.0-20.0); CALCIUM 8.3 MG/DL (8.5-10.1); CHLORIDE 105 MMOL/L (99-107); CREATININE 1.04 MG/DL (0.60-1.10); GLUCOSE 109 MG/DL (70-104); POTASSIUM 3.9 MMOL/L (3.5-5.1); SODIUM 141 MMOL/L (135-145); TOTAL CARBON DIOXIDE 27.8 MMOL/L (24-32); eCRCL 89 ML/MIN; eGFR 81 ML/MIN
[2024-09-14 17:51] LABS: ETHANOL < 10 MG/DL (<10)
== END 2024-09-14 16:43 | disposition home or self-care (01) ==
LOC: ER 14:58
DX: F15.90 Other stimulant use, unspecified, uncomplicated (principal); F41.9 Anxiety disorder, unspecified; F20.9 Schizophrenia, unspecified; F32.A Depression, unspecified; F11.90 Opioid use, unspecified, uncomplicated; Z56.0 Unemployment, unspecified; Z88.5 Allergy status to narcotic agent; Z59.00 Homelessness unspecified; Z88.1 Allergy status to other antibiotic agents; Z79.899 Other long term (current) drug therapy; Z20.822 Contact with and (suspected) exposure to COVID-19
CPT/HCPCS: 36415; 80048; 80320; 85025; 99284

== ENCOUNTER 2024-09-14 22:16 | Emergency (ER) | payer MEDICAID ==
[~2024-09-14] VITALS: Ht 172.7 cm; Wt 64.5 kg
[2024-09-14 22:18] VITALS: BP 109/64; PULSE 103; RESP 20; TEMP 97.8; O2SAT 97
--- NOTE | 2024-09-14 22:29 | Physician Documentation ---
History of Present Illness ~ Chief Complaint: Suicidal Ideation Stated Complaint: SI Time Seen by MD: 22:27 Primary Medical Doctor: N/A HPI 38-year-old male reports ER with methamphetamine use. Patient was seen here earlier today for SI and was cleared and discharge. Patient reports back for methamphetamine use. Denies visual auditory hallucinations. Denies SI or HI. Patient states that I am hungry and when a place to sleep. No other complaints at this time Medication Reconciliation Allergies: Coded Allergies: Cephalexin Monohydrate (Verified Allergy, Unknown, 08/06/24) amoxicillin (Verified Allergy, Unknown, 08/06/24) clavulanic acid (Verified Allergy, Unknown, 08/06/24) codeine (Verified Allergy, Unknown, 08/06/24) Scheduled Aripiprazole (Aripiprazole), 20 MG PO DAILY Hydroxyzine Hcl* (Atarax*), 50 MG PO HS Quetiapine Fumarate (Quetiapine Fumarate), 200 MG PO HS Venlafaxine HCl (Venlafaxine HCl ER), 1 TAB PO DAILY Past Medical History Past Medical History: *PSYCH*, Anxiety, Depression, Psychosis, Schizophrenia Past Surgical History: no surgical history Patient History: Anxiety disorder FATHER (anxiety), , Cause: Diabetes, Not a twin Alcohol Use: None Drug Use: methamphetamine, heroin Lives with: Mother Lives In: Homeless Occupation: unemployed Physical Exam Vital Signs: Temperature: 97.8, Source: Temporal, Heart Rate: 103, Respiratory Rate: 20, BP: 109/64, Pulse Oximetry: 97, Weight: 64.500 Oxygen Flow Rate: 0 Physical Exam General: Well developed, well nourished, no distress. HEENT: Atraumatic, normal conjunctiva, moist mucous membranes. Neck: Full range of motion, supple. Respiratory: Lungs clear, no respiratory distress. Chest: No accessory muscle use, nontender. Cardiovascular: Regular rate and rhythm. Gastrointestinal: Soft, nontender, nondistended. Bowel sounds present. Extremities: Normal range of motion, nontender, normal capillary refill, no deformity. Back: No midline tenderness, no CVA tenderness. Neurologic: Oriented x4. Distal gross motor and sensory intact all four extremities. Moves all 4 extremities spontaneously. Psychiatric: Normal mood and affect. Skin: Normal color, warm and dry. No edema, no ecchymosis Progress Results/Orders Results/Orders Vital Signs 5/22/25 22:18 Temp 97.8 Pulse 103 Resp 20 B/P (MAP) 109/64 Pulse Ox 97 O2 Flow Rate 0 Medical Decision Making Additional info obtained from: old records Findings After detailed discussion jet medical decision-making, diagnostic imaging results were discussed with patient. At this time patient did not endorse SI or HI. I discussed with the patient that we can not let him sleep. . Patient eloped prior to re-evaluation by myself. Status patient was unknown and I did not re-evaluate the patient prior to eloping. Differential Dx:Considerations: Include: Alcohol abuse, Anxiety, Homicidal, Panic disorder, Schizophrenia, Substance abuse, Suicidal Departure Disposition: 07 LEFT AWOL/ELOPED Impression: Primary Impression: Methamphetamine abuse Referrals: NO PRIMARY CARE PROVIDER (PCP) Signature Scribe Signature: None used Attestation: Scribed for Emergency,Department by Brandon STRATTON . 09/14/24 22:29 BRANDON GONCALVES September 14, 2024 22:29
== END 2024-09-14 23:39 | disposition left against medical advice (07) ==
LOC: ER 22:17
DX: F15.10 Other stimulant abuse, uncomplicated (principal); F20.9 Schizophrenia, unspecified; F41.9 Anxiety disorder, unspecified; F11.90 Opioid use, unspecified, uncomplicated; F32.A Depression, unspecified; Z59.00 Homelessness unspecified; Z88.5 Allergy status to narcotic agent; Z88.1 Allergy status to other antibiotic agents; Z79.899 Other long term (current) drug therapy; Z56.0 Unemployment, unspecified
CPT/HCPCS: 99281

== ENCOUNTER 2024-09-15 08:50 | Emergency (ER) | payer MEDICAID ==
[~2024-09-15] VITALS: Ht 172.7 cm; Wt 61.4 kg
[2024-09-15 08:57] VITALS: TEMP 97.8
--- NOTE | 2024-09-15 09:59 | Physician Documentation ---
History of Present Illness ~ Chief Complaint: Suicidal Ideation Stated Complaint: BASSAM EVLIVIA Time Seen by MD: 09:58 OK to notify your PCP?: Yes Primary Medical Doctor: N/A Source: patient, RN/, RN notes reviewed, old records Mode of Arrival: EMS Exam Limitations: no limitations HPI 38 year old male who is a frequent visitor presents to the emergency department complaining of suicidal ideation. Patient states that his only issues is that he is feeling suicidal. He has been seen yesterday and has been cleared and given resources to follow up with. When asked patient denies following up with any mental health services and denies having a psychiatrist. Additionally patient endorses recent methamphetamine use. Patient denies any other associated symptoms at this time. Patient denies any other alleviating or exacerbating factors. Medication Reconciliation Allergies: Coded Allergies: Cephalexin Monohydrate (Verified Allergy, Unknown, 08/06/24) amoxicillin (Verified Allergy, Unknown, 08/06/24) clavulanic acid (Verified Allergy, Unknown, 08/06/24) codeine (Verified Allergy, Unknown, 08/06/24) Scheduled Aripiprazole (Aripiprazole), 20 MG PO DAILY Hydroxyzine Hcl* (Atarax*), 50 MG PO HS Quetiapine Fumarate (Quetiapine Fumarate), 200 MG PO HS Venlafaxine HCl (Venlafaxine HCl ER), 1 TAB PO DAILY Past Medical History Past Medical History: *PSYCH*, Anxiety, Depression, Psychosis, Schizophrenia Past Surgical History: no surgical history Patient History: Anxiety disorder FATHER (anxiety), , Cause: Diabetes, Not a twin Alcohol Use: None Drug Use: methamphetamine, heroin Lives with: Mother Lives In: Homeless Occupation: unemployed Review of Systems All Other Systems at this time: Reviewed and Negative ROS As stated above in the HPI, otherwise all systems are reviewed and negative. Physical Exam Vital Signs: RN Vital Signs have been reviewed: Yes, Temperature: 97.8, Source: Oral, Heart Rate: 97, Respiratory Rate: 15, BP: 107/60, Pulse Oximetry: 99, Weight: 61.400 Pulse Oximetry Reflects: adequate oxygenation Physical Exam General: Patient has an unkept appearance. The patient is well developed, well nourished, nontoxic appearing and is in no acute distress. Skin: [place], warm and dry with no rashes. HEENT: Head was normocephalic and atraumatic. Eyes - pupils equal, round, reactive to light and accommodation. Extraocular movements were intact. Conjunctivae were nonicteric. Ears - bilateral tympanic membranes were normal. The mouth and oropharynx were clear with moist mucous membranes. There were no pharyngeal exudates or erythema. Neck: Supple and nontender. There was no jugular venous distention, lymphadenopathy, thyromegaly or masses. Chest: Clear to auscultation bilaterally without wheezes, rales or rhonchi. No accessory muscle use. No dullness to percussion. Heart: Rate regular and rhythmic. S1, S2. No murmurs. Palpation of the chest wall was normal. No rubs or thrills. Abdomen: Soft, nontender and nondistended. Positive bowel sounds. No guarding or rebound. No hepatosplenomegaly or palpable masses. Extremities: No cyanosis, clubbing or edema. The patient moves all extremities. Pulses were equal and symmetric. Neurologic: Cranial nerves II-XII were intact. Sensation was intact to light touch throughout. Motor strength was 5/5 in all four extremities. Deep tendon reflexes were intact in both upper and lower extremities. Psychologic: Suicidal. The patient was oriented to person, place and time. Progress Results/Orders Reviewed/noted all lab results: Yes Results/Orders Vital Signs 09/15/24 09/15/24 09/15/24 08:57 09:31 11:26 Temp 97.8 Pulse 97 60 Resp 15 15 12 B/P (MAP) 107/60 112/69 (83) Pulse Ox 99 99 Re-Evaluation Re-Evaluation : Re-Evaluation: Improved Progress Patient was seen and examined. Patient is given reassurance. Patient has been seen multiple times for the same noncompliant refuses rehab facilities refuses mental health evaluation but comes in claiming suicidality requesting housing. Patient was given a referral to [facility] [place] bus passes were provided he has access to psychiatry if he each so chooses. He was then discharged home. Patient has no guns no specific plans patient was requesting food. Medical Decision Making Additional info obtained from: old records Differential Dx:Considerations: Include: Alcohol abuse, Anxiety, Bipolar disorder, Conversion disorder, Depression, Encephaloathy, Panic disorder, Personality disorder, Schizophrenia, Substance abuse, Suicidal, Other Departure Time of Disposition: 10:25 Disposition: 01 HOME / SELF CARE / HOMELESS Impression: Primary Impression: Suicidal ideation Additional Impression: Methamphetamine abuse Condition: Stable Discharge Instructions: Suicidal Feelings: How to Help Yourself Additional Instructions: Patient needs to follow up at [facility] to receive treatment and follow up with proper mental health services. Referrals: NO PRIMARY CARE PROVIDER (PCP) Education Educated: Patient Educated regarding: diagnosis, treatment, prognosis Signature Scribe Signature: Scribed for Lolita Smyth MD by Trista Freed . 09/15/24 10:27 Attestation: The note accurately reflects work and decisions made by me.Lolita Smyth MD 09/15/24 09:59 LOLITA SMYTH MD September 15, 2024 09:59 TRISTA LEAL September 15, 2024 10:27
[2024-09-15 11:26] VITALS: BP 112/69; PULSE 60; RESP 12; O2SAT 99
== END 2024-09-15 11:36 | disposition home or self-care (01) ==
LOC: ER 08:50
DX: R45.851 Suicidal ideations (principal); F15.10 Other stimulant abuse, uncomplicated; F41.9 Anxiety disorder, unspecified; F20.9 Schizophrenia, unspecified; F32.A Depression, unspecified; F11.90 Opioid use, unspecified, uncomplicated; Z88.5 Allergy status to narcotic agent; Z88.1 Allergy status to other antibiotic agents; Z59.00 Homelessness unspecified; Z79.899 Other long term (current) drug therapy; Z56.0 Unemployment, unspecified
CPT/HCPCS: 99285

== ENCOUNTER 2024-09-15 17:59 | Emergency (ER) | payer MEDICAID ==
--- NOTE | 2024-09-15 18:08 | Physician Documentation ---
History of Present Illness ~ Chief Complaint: See Chief Complaint Stated Complaint: SI Time Seen by MD: 18:02 Primary Medical Doctor: N/A HPI 38-year-old male reports ER chief complaint of tiredness. Patient states he is tired and wants a place to rest ankle. Patient has been here several times before with similar complaints. Patient denies SI, HI, visual auditory hallucinations. No other complaints at this time Tetanus within 5 years?: No (UNABLE TO RECALL) Medication Reconciliation Allergies: Coded Allergies: Cephalexin Monohydrate (Verified Allergy, Unknown, 08/06/24) amoxicillin (Verified Allergy, Unknown, 08/06/24) clavulanic acid (Verified Allergy, Unknown, 08/06/24) codeine (Verified Allergy, Unknown, 08/06/24) Scheduled Aripiprazole (Aripiprazole), 20 MG PO DAILY Hydroxyzine Hcl* (Atarax*), 50 MG PO HS Quetiapine Fumarate (Quetiapine Fumarate), 200 MG PO HS Venlafaxine HCl (Venlafaxine HCl ER), 1 TAB PO DAILY Past Medical History Past Medical History: *PSYCH*, Anxiety, Depression, Psychosis, Schizophrenia Past Surgical History: no surgical history Patient History: Anxiety disorder FATHER (anxiety), , Cause: Diabetes, Not a twin Alcohol Use: None Drug Use: methamphetamine, heroin Lives with: Mother Lives In: Homeless Occupation: unemployed Physical Exam Physical Exam General: Well developed, well nourished, no distress. HEENT: Atraumatic, normal conjunctiva, moist mucous membranes. Neck: Full range of motion, supple. Respiratory: Lungs clear, no respiratory distress. Chest: No accessory muscle use, nontender. Cardiovascular: Regular rate and rhythm. Gastrointestinal: Soft, nontender, nondistended. Bowel sounds present. Extremities: Normal range of motion, nontender, normal capillary refill, no deformity. Back: No midline tenderness, no CVA tenderness. Neurologic: Oriented x4. Distal gross motor and sensory intact all four extremities. Moves all 4 extremities spontaneously. Psychiatric: Normal mood and affect. Skin: Normal color, warm and dry. No edema, no ecchymosis Medical Decision Making Additional info obtained from: old records Findings After detailed discussion and joint medical decision-making, diagnostic and imaging results were discussed with the patient. At this time patient we will be discharged with instructions to follow up primary care. I discussed with the patient that if he needs assistance speaking sent him to the [place] he declined this. Patient is advised to follow up outpatient for us a drug and r ehabilitation facility which he states he does not wish to go to. ER precautions given. Patient stable upon discharge. All patient questions answered to satisfaction Differential Dx:Considerations: Include: Intoxication-Alcohol, Intoxication- Other drug, Personality disorder, Substance abuse disorder Departure Disposition: 01 HOME / SELF CARE / HOMELESS Impression: Primary Impression: Homelessness Condition: Stable Referrals: NO PRIMARY CARE PROVIDER (PCP) Education Educated: Patient Educated regarding: diagnosis, treatment Signature Scribe Signature: none used Attestation: Scribed for Emergency,Department by Brandon STRATTON . 09/15/24 18:07 BRANDON GONCALVES September 15, 2024 18:08
== END 2024-09-15 18:10 | disposition home or self-care (01) ==
LOC: ER 17:59
DX: R53.83 Other fatigue (principal); F41.9 Anxiety disorder, unspecified; F20.9 Schizophrenia, unspecified; F32.A Depression, unspecified; F15.90 Other stimulant use, unspecified, uncomplicated; F11.90 Opioid use, unspecified, uncomplicated; Z56.0 Unemployment, unspecified; Z88.5 Allergy status to narcotic agent; Z88.1 Allergy status to other antibiotic agents; Z59.00 Homelessness unspecified; Z79.899 Other long term (current) drug therapy
CPT/HCPCS: 99281

== ENCOUNTER 2024-10-29 04:37 | Emergency (ER) | payer MEDICAID ==
[~2024-10-29] VITALS: Ht 165.1 cm; Wt 62.2 kg
[2024-10-29 04:40] VITALS: BP 141/73; PULSE 139; RESP 15; TEMP 96.3; O2SAT 97
--- NOTE | 2024-10-29 05:41 | Physician Documentation ---
History of Present Illness ~ Chief Complaint: Mental Health Eval Stated Complaint: SI Time Seen by MD: 05:38 Primary Medical Doctor: N/A HPI I signed up for this patient, and went to evaluate him in the waiting room because all of the ER beds were full. However, when I went to try and find him, he had eloped from the emergency department. I did not speak to the patient or evaluate him further. I did briefly review his chart, which shows several ER visits in the past reporting suicidality and requesting housing. Medication Reconciliation Allergies: Coded Allergies: Cephalexin Monohydrate (Verified Allergy, Unknown, 10/29/24) amoxicillin (Verified Allergy, Unknown, 10/29/24) clavulanic acid (Verified Allergy, Unknown, 10/29/24) codeine (Verified Allergy, Unknown, 10/29/24) Scheduled Aripiprazole (Aripiprazole), 20 MG PO DAILY Hydroxyzine Hcl* (Atarax*), 50 MG PO HS Quetiapine Fumarate (Quetiapine Fumarate), 200 MG PO HS Venlafaxine HCl (Venlafaxine HCl ER), 1 TAB PO DAILY Past Medical History Past Medical History: *PSYCH*, Anxiety, Depression, Psychosis, Schizophrenia Past Surgical History: no surgical history Patient History: Anxiety disorder FATHER (anxiety), , Cause: Diabetes, Not a twin Alcohol Use: None Drug Use: methamphetamine, heroin Lives with: Mother Lives In: Homeless Occupation: unemployed Physical Exam Vital Signs: Temperature: 96.3, Source: Temporal, Heart Rate: 139, Respiratory Rate: 15, BP: 141/73, Pulse Oximetry: 97, Weight: 62.250 Progress Results/Orders Results/Orders Vital Signs 10/29/24 04:40 Temp 96.3 Pulse 139 Resp 15 B/P (MAP) 141/73 Pulse Ox 97 Departure Disposition: 07 LEFT AWOL/ELOPED Impression: Primary Impression: Encounter for medical screening examination Referrals: NO PRIMARY CARE PROVIDER (PCP) Signature Scribe Signature: na Attestation: ZOE Becerra MD Oct 29, 2024 05:41
== END 2024-10-29 06:11 | disposition left against medical advice (07) ==
LOC: ER 04:38
DX: R45.851 Suicidal ideations (principal); F41.9 Anxiety disorder, unspecified; F20.9 Schizophrenia, unspecified; F15.90 Other stimulant use, unspecified, uncomplicated; F11.90 Opioid use, unspecified, uncomplicated; Z88.5 Allergy status to narcotic agent; Z59.00 Homelessness unspecified; Z88.1 Allergy status to other antibiotic agents; Z53.21 Procedure and treatment not carried out due to patient leaving prior to being seen by health care provider; Z79.899 Other long term (current) drug therapy; Z56.0 Unemployment, unspecified